=== PATIENT | female | born 1935 ===

== ENCOUNTER 2022-06-18 07:40 | Outpatient (REF) | payer MEDICARE, OTHER, SELFPAY ==
[2022-06-18 11:24] LABS: MANUAL DIFF FLAG NO
[2022-06-18 11:30] LABS: Basophils Absolute Auto 0.1 X10*3/uL (0.0-0.2); Basophils Percent Auto 1.4 % (0-2); Eosinophils Absolute Auto 0.4 X10*3/uL (0.0-0.4); Eosinophils Percent Auto 7.6 % (0-4); Hematocrit 42.6 % (37.0-47.0); Hemoglobin 13.6 g/dl (12.0-16.0); Imm Gran Abs Auto 0.02 X10*3/uL (0.00-0.03); Imm Gran Pct Auto 0.4 % (0.0-0.4); Lymphocytes Absolute Auto 0.9 X10*3/uL (1.2-4.9); Lymphocytes Percent Auto 16.3 % (20-40); Mean Corpuscular HGB Conc 31.9 g/dl (31.0-35.0); Mean Corpuscular Hemoglobin 31.2 pg (27.0-33.0); Mean Corpuscular Volume 97.7 fL (80.0-98.0); Mean Platelet Volume 11.6 fL (9.4-12.3); Monocytes Absolute Auto 0.7 X10*3/uL (0.1-1.2); Monocytes Percent Auto 11.7 % (2-11); Neutrophils Absolute Auto 3.5 x10*3/uL (2.0-8.3); Neutrophils Percent Auto 62.6 % (45-73); Platelet Count 253 X10*3/uL (160-400); Red Blood Count 4.36 X10*6/uL (4.20-5.50); Red Cell Distribution Width 12.4 % (11.0-16.0); White Blood Count 5.6 X10*3/uL (4.8-10.8)
[2022-06-18 11:51] LABS: Alanine Aminotransferase 12 U/L (0-31); Albumin Level 4.3 g/dL (3.5-5.0); Alkaline Phosphatase 80 U/L (39-117); Anion Gap 14 (12-20); Aspartate Amino Transferase 19 U/L (5-31); Bilirubin Total 0.5 mg/dL (0.0-1.0); Blood Urea Nitrogen 25 mg/dL (9-16); Calcium 9.5 mg/dL (8.4-10.2); Carbon Dioxide 29 mmol/L (22-29); Chloride 102 mmol/L (96-108); Cholesterol 272 mg/dL; Estimated Glomerular Filt Rate 44; Glucose Fasting 89 mg/dL (60-99); HDL Cholesterol 62 mg/dL; Iron 96 mcg/dL (30-160); LDL Cholesterol Calculated 179 mg/dl; Percent Iron Saturation 26 % (15-50); Potassium 4.3 mmol/L (3.3-5.1); Sodium 141 mmol/L (135-145); Total Iron Binding Capacity 371 mcg/dL (228-428); Total Protein 7.6 g/dL (6.5-8.0); Triglycerides 156 mg/dL; Unsaturated Iron Binding 275 ug/dL
[2022-06-18 12:11] LABS: TSH reflex Free T4 2.01 uIU/mL (0.32-4.0)
[2022-06-18 13:17] LABS: Folate > 20.0 ng/mL (> or = 4.0); Vitamin B12 782 pg/mL (200-900)
== END 2022-06-18 07:41 | disposition home or self-care (01) ==
LOC: HO.HMGCLDS 07:40
PROVIDERS: PCP Internal Medicine; Visit Provider Internal Medicine
DX: I10 Essential (primary) hypertension (principal); R42 Dizziness and giddiness
CPT/HCPCS: 36415; 80053; 80061; 82306; 82607; 82746; 83540; 84443; 85025

== ENCOUNTER 2022-07-20 10:55 | Outpatient (REF) | payer MEDICARE, OTHER, SELFPAY ==
--- NOTE | ~2022-07-20 | XR_ITS ---
EXAMINATION: XR CHEST CLINICAL INFORMATION: Dyspnea COMPARISON: None TECHNIQUE: 2 views of the chest were obtained. FINDINGS: The lungs are hyperinflated but clear. The heart size and pulmonary vascularity is normal. There is moderate dextroscoliosis dorsal spine. No lytic process seen. XR/XR chest 2V IMPRESSION: Hyperinflated lungs without acute process. There is moderate dextroscoliosis dorsal spine.
== END 2022-07-20 10:56 | disposition home or self-care (01) ==
LOC: HO.HMGCX 10:55
PROVIDERS: PCP Internal Medicine; Visit Provider Internal Medicine
DX: R06.09 Other forms of dyspnea (principal)
CPT/HCPCS: 71046

== ENCOUNTER → 2022-08-13 10:23 | Outpatient (REF) | payer MEDICARE, OTHER, SELFPAY ==
--- NOTE | 2022-08-13 10:22 | CA_ITS ---
Transthoracic Echocardiogram Patient (Last, First, Middle): Ambreen Storm Patricia (Pat) Gender: Female Date of : 1935 Age: 86 Procedure Date: 08/13/2022 Procedure Type: Transthoracic Echocardiogram Location: OP Height: 157.48 cm Weight: 48.54 kg BSA: 1.47 m2 Heart Rate: bpm BP: 165 / 80 mmHg Postal Carrier: TO Referring MD: Jennifer Moreno MD Symptoms: R06.09 - Other forms of dyspnea Study Quality: Adequate ECG Rhythm: Sinus Conclusions: - The left ventricular systolic function is normal. The calculated ejection fraction is 56% by biplane method. - The inferoseptal wall, the basal inferior, and basal inferolateral segments are hypokinetic. - The left atrium is moderately dilated. - There is mild mitral valve regurgitation. - There is mild tricuspid valve regurgitation. - Mild pulmonary hypertension is present. Findings Left Ventricle Normal left ventricular cavity size. There is normal left ventricular wall thickness. The left ventricular systolic function is normal. The calculated ejection fraction is 56% by biplane method. There is evidence of regional wall motion abnormalities. E/E prime ratio is between 8 and 15 consistent with indeterminate filling pressures. Evidence suggests grade I (mild) diastolic dysfunction. Wall Motion Rest Echo Findings The inferoseptal wall, the basal inferior, and basal inferolateral segments are hypokinetic. Right Ventricle Normal right ventricular cavity size and systolic function. Atria The left atrium is moderately dilated. The right atrium is normal in size. Aortic Valve There is a normal trileaflet aortic valve. There is no aortic valve stenosis. There is trace (trivial) aortic valve regurgitation. Mitral Valve The mitral valve appears normal. There is mild mitral valve regurgitation. There is no mitral valve stenosis. Pulmonic Valve There is mild pulmonic valve regurgitation. Tricuspid Valve Normal tricuspid valve structure. There is mild tricuspid valve regurgitation. Mild pulmonary hypertension is present. Great Vessels The asc aorta is normal in size. Venous The inferior vena cava is normal in size and collapses greater than 50% with inspiration. Pericardium/Pleural There is no evidence of pericardial effusion. Prior Study Comparison No prior study available for comparison. Measurements 2D Linear Measurements IVSd: 1.00 0.6-0.9/0.6-1.0 cm LVIDd: 4.44 3.9-5.3/4.2-5.9 cm LVIDd Index: 3.02 2.4-3.2/2.2-3.1 cm/m2 LVIDs: 2.75 2.0-3.6 cm LVPWd: 0.98 0.7-1.1 cm LA Diam: 3.10 2.7-3.8/3.0-4.0 cm LAIDs Index: 2.11 1.5-2.3 cm/m2 LV Mass: 183.52 67-162/88-224 g LV Mass Index: 124.84 43-95/49-115 g/m2 LVOT Diam: 2.00 3.0+(-)1.3 cm 2D Systolic Function EF 4C: 52.20 >55% EF 2C: 58.50 >55% EF BiP: 56.10 >55% Mitral Valve MV Pk E: 0.53 MV PK A: 0.72 MV Decel Time: 246.00 E/A: 0.70 E'Lateral: 7.07 E'Medial: 3.70 E/E' Med: 14.20 E/E' Lat: 7.50 PHT: 72.00 MVA PHT: 3.06 Decel Wake: 2.14 Aortic Valve AoV Pk Tejas: 0.89 AoV Mn Tejas: 0.66 AoV VTI: 0.23 AoV Pk Grad: 3.00 Aov Mn Grad: 2.00 KATEY Cont.VTI: 2.28 LVOT LVOT Pk Tejas: 0.65 LVOT Mn Tejas: 0.42 LVOT VTI: 0.17 LVOT Pk Grad: 2.00 LVOT Mn Grad: 1.00 LVOT Diam: 2.00 LVOT Area: 3.14 Diastolic Function MV Pk E: 0.53 MV Pk A: 0.72 E/A: 0.70 E'Medial: 3.70 E/E' Med: 14.20 E' Laterial: 7.07 E/E' Lat: 7.50 Right Ventricle TAPSE (mm): 20.00 TVS' Tejas: 9.25 Tricuspid Valve TR Pk Tejas: 3.00 TR Pk Grad: 36.00 RA Press: 3.00 RVSP: 39.00 Great Vessels Aorta Sinus of Valsalva: 3.69 2.0-3.5 cm Ao Asc: 3.30 2.1-3.4 cm Updated in Other Vendor System with Status of Final Scottie Madsen MD electronically signed on 08/14/2022 12:05:06 PM with status of Final
== END ==
LOC: HO.CARD 10:23
PROVIDERS: Visit Provider Internal Medicine
DX: R06.09 Other forms of dyspnea (principal); I10 Essential (primary) hypertension
CPT/HCPCS: 93306

== ENCOUNTER 2022-09-25 15:33 | Outpatient (REF) | payer MEDICARE, OTHER, SELFPAY ==
[2022-09-25 16:39] LABS: Influenza A PCR POSITIVE (Negative); Influenza B PCR NEGATIVE (Negative); Resp Syncy Virus RNA Qual PCR NEGATIVE (Negative); SARS COV2 PCR INHOUSE NEGATIVE (Negative)
== END 2022-09-25 15:34 | disposition home or self-care (01) ==
LOC: HO.LNP 15:33
DX: Z20.822 Contact with and (suspected) exposure to COVID-19 (principal); J06.9 Acute upper respiratory infection, unspecified
CPT/HCPCS: 0241U

== ENCOUNTER 2023-01-18 13:36 | Outpatient (REF) | payer MEDICARE, OTHER, SELFPAY ==
[2023-01-18 16:43] LABS: Alanine Aminotransferase 13 U/L (0-31); Alkaline Phosphatase 78 U/L (39-117); Anion Gap 15 (12-20); Aspartate Amino Transferase 19 U/L (5-31); Bilirubin Total 0.4 mg/dL (0.0-1.0); Blood Urea Nitrogen 24 mg/dL (9-16); Calcium 9.3 mg/dL (8.4-10.2); Carbon Dioxide 27 mmol/L (22-29); Chloride 102 mmol/L (96-108); Estimated Glomerular Filt Rate 39; Glucose Random 92 mg/dL (60-115); Potassium 4.5 mmol/L (3.3-5.1); Sodium 139 mmol/L (135-145); Total Protein 6.8 g/dL (6.5-8.0)
== END 2023-01-18 13:37 | disposition home or self-care (01) ==
LOC: HO.HMGCLDS 13:36
PROVIDERS: PCP Internal Medicine; Visit Provider Internal Medicine
DX: I12.9 Hypertensive chronic kidney disease with stage 1 through stage 4 chronic kidney disease, or unspecified chronic kidney disease (principal); N18.30 Chronic kidney disease, stage 3 unspecified
CPT/HCPCS: 36415; 80053

== ENCOUNTER 2023-02-23 14:19 | Outpatient (REF) | payer MEDICARE, OTHER, SELFPAY ==
--- NOTE | ~2023-02-23 | US_ITS ---
EXAMINATION: US RETROPERITONEAL LIMITED (RENAL ONLY) CLINICAL INFORMATION: Chronic kidney disease, stage 3 unspecified. COMPARISON: None available. TECHNIQUE: Real-time imaging of the kidneys. FINDINGS: RIGHT KIDNEY: 8.7 x 3.1 x 4.4 cm (SAG x AP x TRV). The right kidney is smaller than the left. There is right renal cortical thinning.. There is a 3 cm cyst in the upper pole. No renal calculi or hydronephrosis. LEFT KIDNEY: 10.2 x 3.4 x 3.9 cm (SAG x AP x TRV). The kidney is normal in size, contour, and echogenicity. There is be left renal cortical thinning.. There is a 9 x 8 x 8 mm minimally complex cyst in the upper pole the left kidney with single thin septation. No renal calculi or hydronephrosis. ADDITIONAL FINDINGS: There is a 2 cm cyst in the liver. US/US renal BI IMPRESSION: Bilateral renal cortical thinning. The right kidney is smaller than the left. Bilateral renal cysts.
== END 2023-02-23 14:20 | disposition home or self-care (01) ==
LOC: HO.HMGCX 14:19
PROVIDERS: PCP Internal Medicine; Visit Provider Internal Medicine
DX: N18.30 Chronic kidney disease, stage 3 unspecified (principal)
CPT/HCPCS: 76775

== ENCOUNTER 2023-03-30 10:27 | Outpatient (REF) | payer MEDICARE, OTHER, SELFPAY ==
[2023-03-30 12:39] LABS: Anion Gap 11 (12-20); Blood Urea Nitrogen 27 mg/dL (9-16); Calcium 9.8 mg/dL (8.4-10.2); Carbon Dioxide 29 mmol/L (22-29); Chloride 106 mmol/L (96-108); Estimated Glomerular Filt Rate 44; Glucose Random 75 mg/dL (60-115); Potassium 4.4 mmol/L (3.3-5.1); Sodium 142 mmol/L (135-145); Vitamin D 25-OH Total 61.3 ng/mL (>30)
== END 2023-03-30 10:28 | disposition home or self-care (01) ==
LOC: HO.HMGCLDS 10:27
PROVIDERS: PCP Internal Medicine; Visit Provider Internal Medicine
DX: I12.9 Hypertensive chronic kidney disease with stage 1 through stage 4 chronic kidney disease, or unspecified chronic kidney disease (principal); N18.30 Chronic kidney disease, stage 3 unspecified; E55.9 Vitamin D deficiency, unspecified
CPT/HCPCS: 36415; 80048; 82306

== ENCOUNTER 2023-09-27 09:58 | Outpatient (AMB) | payer MEDICARE, OTHER, SELFPAY ==
[2023-09-27 10:11] VITALS: BP 128/70; PULSE 70; O2SAT 94; BMI 20.6
--- NOTE | 2023-09-27 10:11 | MHC.PC.OV ---
Vital Signs 09/27/23 10:11 Height 5 ft 1 in Weight 109 lb BMI 20.6 BP 128/70 Blood Pressure Location Lt brachial Position Sitting Pulse 70 Pulse Source Pulse Oximeter Pulse Oximetry (%) 94 Oxygen Delivery Method Room Air Intake Visit Reasons: PE. Intake Note: Pt is here today for PE. Allergies brimonidine Adverse Reaction (Verified 09/27/23 10:28) Anaphylaxis codeine Adverse Reaction (Verified 09/27/23 10:28) Nausea and Vomiting Iodinated Contrast Media Adverse Reaction (Verified 09/27/23 10:28) Anaphylaxis NSAIDS (Non-Steroidal Anti-Inflamma Adverse Reaction (Verified 09/27/23 10:28) chronic kidney disease simvastatin Adverse Reaction (Verified 09/27/23 10:28) leg weakness fruit Adverse Reaction (Uncoded 09/27/23 10:28) Nausea and Vomiting niacin Adverse Reaction (Uncoded 09/27/23 10:28) leg cramps Tobacco use date assessed: 09/27/23 Fall risk assessment: No Falls in past year Last assessed Fall Risk: 09/27/23 Dental Screening Dental Screen Date: 09/27/23 Did you have a dental visit in the last 12 months?: Yes Did you have a dental problem in the last 6 months where you did not have access to dental care?: No Was dental information given to patient?: Patient has dentist [facility] Medical History Viral upper respiratory tract infection with cough Family History Father No problems noted. Mother No problems noted. Housing: Apartment Patient Tobacco Use Status: Never used Tobacco e-Cigarette/Vaping Use: Never Used service: No Current occupational status: retired Cognitive needs: No Hearing needs: Yes Vision needs: Yes Questionnaire Thrive Questionnaire Date Thrive assessed: 12/28/22 AUDIT C Alcohol Use Questionnaire (AUDIT-C) 1. How often do you have a drink containing alcohol?: Monthly or less 2. How many drinks containing alcohol do you have on a typical day when you are drinking?: 1 or 2 3. How often do you have six or more drinks on one occasion?: Never Total Score: 1 MATEO-7 AMB Questionnaire MATEO-7 Date MATEO - 7 assessed: 12/28/22 Source: Developed by Drs. Lane Meyers, Mere Kovacs, Zak Huitron and colleagues, with an educational arielle from [employer] Physical exam (Primary Care) Tobacco/Smoking Status: Tobacco use Status Tobacco use date assessed 12/28/22 03/30/23 10:04 Patient Tobacco Use Status Never used Tobacco 03/30/23 10:04 e-Cigarette/Vaping Use Never Used 03/30/23 10:04 Thrive Assessment: Date of Thrive Assessment Date Thrive assessed 12/28/22 03/30/23 10:04 Coding
--- NOTE | 2023-09-27 10:33 | A.OFFVIS_ITS ---
Intake Vital Signs 09/27/23 10:11 09/27/23 10:34 Height 5 ft 1 in Weight 109 lb BMI 20.6 20.6 BP 128/70 Blood Pressure Location Lt brachial Position Sitting Pulse 70 Pulse Source Pulse Oximeter Pulse Oximetry (%) 94 Oxygen Delivery Method Room Air Intake Visit Reasons: AWV. Allergies brimonidine Adverse Reaction (Verified 09/27/23 10:28) Anaphylaxis codeine Adverse Reaction (Verified 09/27/23 10:28) Nausea and Vomiting Iodinated Contrast Media Adverse Reaction (Verified 09/27/23 10:28) Anaphylaxis NSAIDS (Non-Steroidal Anti-Inflamma Adverse Reaction (Verified 09/27/23 10:28) chronic kidney disease simvastatin Adverse Reaction (Verified 09/27/23 10:28) leg weakness fruit Adverse Reaction (Uncoded 09/27/23 10:28) Nausea and Vomiting niacin Adverse Reaction (Uncoded 09/27/23 10:28) leg cramps Medication List - Last Reconciled 09/27/23 by Jennifer Moreno MD amiloride 5 mg PO DAILY amlodipine 2.5 mg PO DAILY ascorbic acid (vitamin C) 500 mg PO DAILY aspirin 81 mg PO DAILY latanoprost 0.005% 1 drp ophthalmic (eye) DAILY metoprolol succinate ER 50 mg PO DAILY multivit with min-folic acid 200 mcg (Adult Multivitamin Gummies) tabs PO timolol maleate 0.5% 1 drp ophthalmic (eye) BID triamcinolone acetonide 0.1% 1 appl topical DAILY HPI AWV. HPI Details Patient presents for annual. She complains of abdominal epigastric discomfort fullness slight nausea but no vomiting and increased abdominal girth for few months. Patient denies change in bowel habits or urination, fever or chills, night sweats or weight loss Initiated the conversation about Advanced Directives. Advanced Directives help? patients prepare for current and future decisions about their medical treatment? and place of care. Discussed with patient that it is a process where a patients? current condition and prognosis are reviewed, their wishes for information? regarding their illness are elicited, and likely medical dilemmas are presented? and options discussed. The form can be amended as needed, reviewed yearly and? make changes as needed IPPE/AWV ? year old presents? for her ? Annual? Wellness Visit, initial visit.? Medical / Social History Reviewed? Past Medical History ?Yes? . ? [place]? of Care / Care Team list updated ?Yes . ? Surgical/Hospitalization? History ?Yes . ? Current Medications? (including OTC and supplements) ?Yes . ? Family History ?Yes? . ? Tobacco? Control form ?Yes . ? AUDIT-C (Alcohol use) form? ?Yes . ? Illicit drug use in Social? History ?Yes . ? Current diagnosis of? depression? ?No ? Appropriate PHQ2/PHQ9? completed ?Yes . ? Data entered by ?Medical? [employer] and reviewed by provider ? Fall Risk ? Fall? History? Have you had any falls with? injury in the past year? ?No . ? Have you had two or more? falls in the past year? ?No . ? Fall Risk Assessment: ?No? falls in the past year . ? HRA filled out by? the patient, reviewed by Provider and scanned. ? IPPE/AWV ? Balance? [place]? ?Yes . ? Tandem? walk ?Yes . ? Walk and? Turn ?Yes . ? Rise from? sit to stand ?Yes . ?Vision? Corrective? lens ?Yes ? Vision? screen ? Up-to-date, has an appointment [] for vision? screening and glaucoma screening ?Hearing? Whisper? test ?pass .? Initiated the conversation about Advanced Directives. Advanced Directives help? patients prepare for current and future decisions about their medical treatment? and place of care. Discussed with patient that it is a process where a patients? current condition and prognosis are reviewed, their wishes for information? regarding their illness are elicited, and likely medical dilemmas are presented? and options discussed. The form can be amended as needed, reviewed yearly and? make changes as needed Written? Plan?Completed. See Patient? Documents. [facility] Medical History Viral upper respiratory tract infection with cough Family History Father No problems noted. Mother No problems noted. Housing: Apartment Patient Tobacco Use Status: Never used Tobacco e-Cigarette/Vaping Use: Never Used service: No Current occupational status: retired Cognitive needs: No Hearing needs: Yes Vision needs: Yes Questionnaire Medicare Wellness Checkup What is your age?: 80 or older What gender do you identify with?: female During the past 4 weeks, how much have you been bothered by emotional problems such as feeling anxious, depressed, irritable, sad or downhearted, and blue?: not at all During the past 4 weeks, has your physical & emotional health limited your social activities with family, friends, neighbors, or groups?: not at all During the past 4 weeks, how much bodily pain have you generally had?: very mild pain During the past 4 weeks, was someone available to help you if you needed & wanted help?: yes, as much as I wanted During the past 4 weeks, what was the hardest physical activity you could do for at least 2 minutes?: heavy Can you get to places out of walking distance without help? (For eg., can you travel alone on buses, taxis or drive your car?): Yes Can you go shopping for groceries or clothes without someone's help?: Yes Can you prepare your own meals?: Yes Can you do your housework without help?: Yes Because of any health problems, do you need the help of another person with your personal care needs such as eating, bathing, dressing or getting around the house?: No Can you handle your own money without help?: Yes During the past 4 weeks, how would you rate your health in general?: very good During the past 4 weeks how have things been going for you?: very well; could hardly better Are you having difficulties driving your car?: sometimes Do you always fasten your seat belt when you are in a car?: yes, usually During past 4 weeks, have you been bothered by the following: never: Sexual problems?, Teeth or denture problems? and Problems using the telephone? and sometimes: Falling or dizzy when standing up, Trouble eating well? and Tiredness or fatigue? Have you fallen 2 or more times in the past year?: No Are you afraid of falling?: Yes Are you a smoker?: no During the past 4 weeks, how many drinks of wine, beer, or other alcoholic beverages did you have?: 1 drink or less per week Do you exercise for about 20 minutes 3 or more times a week?: yes, most of the time Have you been given information to help with the following?: yes: Hazards in your house that might hurt you? and no: Keeping track of your medications? How often do you have trouble taking medicines the way you have been told to take them?: I always take medicine as prescribed How confident are you that you can control & manage most of your health problems?: very confident What is your race?: Other (N/A) Mini Mental State Exam (MMSE) Orientation What is the (year) (season) (date) (day) (month)?: year, season, date, day and month Where are we (state) (county) (town or city) (hospital) (floor)?: state, county, town or city, hospital/clinic and floor Registration Name of 3 unrelated objects clearly and slowly, then ask patient to repeat all 3 of them. (1st repeat determines score. Make sure they can repeat all three): object 1, object 2 and object 3 Attention & Calculation (CHOOSE ONE) Ask pt to begin with 100 & count backward by 7. Stop after 5 repeats. If pt c annot ask them to spell the word WORLD backward.: 93 Spell WORLD backwards (DLROW): 5 letters Recall Ask patient to repeat the 3 items from question #3.: object 1, object 2 and object 3 Language Show patient a wristwatch & ask what it is. Repeat for pencil.: watch and pencil Ask the patient to repeat the phrase 'No ifs, ands, or buts' after you.: correct Ask the patient to 'take a piece of paper with their right hand' 'fold paper in half' 'place paper on floor': take paper in right hand, fold paper in half and place paper on floor Print the sentence 'CLOSE YOUR EYES' on a piece. If patient actually closes eyes then score.: followed written direction Give patient a blank piece of paper & ask to write a sentence. Score if it contains a noun & verb.: sentence contains subject and verb Score Score: 30 PHQ-9 Over the last 2 weeks, how often have you been bothered by any of the following problems? 1. Little interest or pleasure in doing things: not at all 2. Feeling down, depressed, or hopeless: not at all 3. Trouble falling or staying asleep, or sleeping too much: not at all 4. Feeling tired or having little energy: not at all 5. Poor appetite or overeating: several days 6. Feeling bad about yourself - or that you are a failure or have let yourself or your family down: not at all 7. Trouble concentrating on things, such as reading the newspaper or watching television: not at all 8. Moving or speaking so slowly that other people could have noticed. Or the opposite - being so fidgety or restless that you have been moving around a lot more than usual: not at all 9. Thoughts that you would be better off or of hurting yourself in some way: not at all Total score: 1 Depression Screening Interpretation: Negative Depression Screening Done: Yes 71857 - PHQ-9 Billing: Yes Source: Developed by DrsCecille Meyers, Mere Kovacs, Zak Huitron and colleagues, with an educational arielle from [employer]. Review of Systems Const All systems reviewed & are unremarkable except as noted in HPI and below Reports no additional complaints Eyes Reports no additional complaints ENT Reports no additional complaints Card Reports no additional complaints Resp Reports no additional complaints GI Reports no additional complaints Reports no additional complaints Physical Exam Vital Signs: Last Vital Signs Pulse 70 09/27/23 10:11 BP 128/70 09/27/23 10:11 Pulse Ox 94 09/27/23 10:11 Oxygen Delivery Method Room Air 09/27/23 10:11 BMI result Body Mass Index 20.6 Const General: no acute distress HEENT Head: Yes normal to inspection Ears: hearing grossly normal bilaterally Neck Neck: Yes no lymphadenopathy and Yes supple Resp Effort & Inspection: normal respiratory effort Auscultation: diminished lung sounds Cardio Rhythm: regular rhythm Heart sounds: S1 normal heart sound present and S2 normal heart sound present GI Other: palpable firm, tender epigastric mass about 10 cm Inspection: Yes normal to inspection Palpation (GI): Soft to palpation and Tenderness to palpation present (GI) in the epigastrum; with no rebound tenderness Auscultation: normal bowel sounds Extrem General: Yes no clubbing, cyanosis or edema Assessment & Plan Assessment & Plan (1) Hyperlipidemia: Comment: INTOLERANT TO STATINS Code(s): E78.5 - Hyperlipidemia, unspecified (2) CKD (chronic kidney disease), stage III: Comment: Chronic, since 2019, Renal US small kidneys consistent with chronic kidney disease and bilateral renal cysts Code(s): N18.30 - Chronic kidney disease, stage 3 unspecified Plan: monitor renal function (3) OMER (dyspnea on exertion): Comment: Echo 08/22 LVEF 56%, mild hypokinesis in inferiolateral, basal inferior wall. Mild MR, mild pul HTN Code(s): R06.09 - Other forms of dyspnea (4) HTN (hypertension): Code(s): I10 - Essential (primary) hypertension Plan: cont current meds (5) Annual physical exam: Code(s): Z00.00 - Encounter for general adult medical examination without abnormal findings Plan: well balanced diet, regular exercise discussed (6) Abdominal mass: Comment: epigastric Code(s): R19.00 - Intra-abdominal and pelvic swelling, mass and lump, unspecified site Plan: obtain abd CT Orders: Orders Basic Metabolic Panel Today I10 - Essential (primary) hypertension, N18.30 - Chronic kidney disease, stage 3 unspecified Complete Blood Count Auto Diff 6 Months E78.5 - Hyperlipidemia, unspecified, I10 - Essential (primary) hypertension, N18.30 - Chronic kidney disease, stage 3 unspecified, Z00.00 - Encounter for general adult medical examination without abnormal findings CT abdomen w IV con 6 Months N18.30 - Chronic kidney disease, stage 3 unspecified, R19.06 - Epigastric swelling, mass or lump Comprehensive [place]. Panel Fast 6 Months E78.5 - Hyperlipidemia, unspecified, I10 - Essential (primary) hypertension, N18.30 - Chronic kidney disease, stage 3 unspecified, Z00.00 - Encounter for general adult medical examination without abnormal findings Lipid Panel 6 Months E78.5 - Hyperlipidemia, unspecified, I10 - Essential (primary) hypertension, N18.30 - Chronic kidney disease, stage 3 unspecified, Z00.00 - Encounter for general adult medical examination without abnormal findings Complete Blood Count Auto Diff Today R06.09 - Other forms of dyspnea Medications: Refilled amlodipine 2.5 mg PO DAILY 90 tabs 3RF metoprolol succinate ER 50 mg PO DAILY 90 tabs 3RF amiloride 5 mg PO DAILY 90 tabs 3RF Quality Reporting (2020) Depression/Bipolar (159/160/161/177) PHQ-9: Total score: 1 Coding Level of Care Code Medicare Subsequent (G0439) Diagnoses Hyperlipidemia E78.5 CKD (chronic kidney disease), stage III N18.30 OMER (dyspnea on exertion) R06.09 HTN (hypertension) I10 Annual physical exam Z00.00 Abdominal mass R19.00 CPT Codes Advance Care Planning - Advance Care Planning discussion: On file, no changes ([id number]) Advance Care Planning - Time spent: 1-15 minutes, on File ([id number]) Advance Care Planning Advance Care Planning discussion: On file, no changes Forms completed: Health Care Proxy Time spent: 1-15 minutes, on File
[2023-09-27 10:34] VITALS: BMI 20.6
== END 2023-09-27 11:11 | disposition home or self-care (01) ==
PROVIDERS: Visit Provider Internal Medicine
DX: E78.5 Hyperlipidemia, unspecified (principal); N18.30 Chronic kidney disease, stage 3 unspecified; R06.09 Other forms of dyspnea; I12.9 Hypertensive chronic kidney disease with stage 1 through stage 4 chronic kidney disease, or unspecified chronic kidney disease; Z00.00 Encounter for general adult medical examination without abnormal findings; R19.00 Intra-abdominal and pelvic swelling, mass and lump, unspecified site
CPT/HCPCS: 1123F; G0439

== ENCOUNTER 2023-09-27 11:07 | Outpatient (REF) | payer MEDICARE, OTHER, SELFPAY ==
[2023-09-27 13:28] LABS: MANUAL DIFF FLAG NO
[2023-09-27 13:36] LABS: Basophils Absolute Auto 0.1 X10*3/uL (0.0-0.2); Basophils Percent Auto 1.4 % (0-2); Eosinophils Absolute Auto 0.4 X10*3/uL (0.0-0.4); Eosinophils Percent Auto 7.3 % (0-4); Hematocrit 41.9 % (37.0-47.0); Hemoglobin 13.2 g/dl (12.0-16.0); Imm Gran Abs Auto 0.02 X10*3/uL (0.00-0.03); Imm Gran Pct Auto 0.3 % (0.0-0.4); Lymphocytes Absolute Auto 1.2 X10*3/uL (1.2-4.9); Lymphocytes Percent Auto 19.6 % (20-40); Mean Corpuscular HGB Conc 31.5 g/dl (31.0-35.0); Mean Corpuscular Hemoglobin 31.4 pg (27.0-33.0); Mean Corpuscular Volume 99.8 fL (80.0-98.0); Mean Platelet Volume 11.6 fL (9.4-12.3); Monocytes Absolute Auto 0.7 X10*3/uL (0.1-1.2); Monocytes Percent Auto 11.7 % (2-11); Neutrophils Absolute Auto 3.5 x10*3/uL (2.0-8.3); Neutrophils Percent Auto 59.7 % (45-73); Platelet Count 238 X10*3/uL (160-400); Red Cell Distribution Width 12.8 % (11.0-16.0); White Blood Count 5.9 X10*3/uL (4.8-10.8)
[2023-09-27 14:09] LABS: Anion Gap 12 (12-20); Blood Urea Nitrogen 22 mg/dL (9-16); Calcium 9.6 mg/dL (8.4-10.2); Carbon Dioxide 28 mmol/L (22-29); Chloride 105 mmol/L (96-108); Estimated Glomerular Filt Rate 43; Glucose Random 80 mg/dL (60-115); Potassium 4.1 mmol/L (3.3-5.1); Sodium 141 mmol/L (135-145)
== END 2023-09-27 11:08 | disposition home or self-care (01) ==
LOC: HO.HMGCLDS 11:07
PROVIDERS: PCP Internal Medicine; Visit Provider Internal Medicine
DX: I12.9 Hypertensive chronic kidney disease with stage 1 through stage 4 chronic kidney disease, or unspecified chronic kidney disease (principal); R06.09 Other forms of dyspnea; N18.30 Chronic kidney disease, stage 3 unspecified
CPT/HCPCS: 36415; 80048; 85025

== ENCOUNTER 2023-11-19 12:41 | Outpatient (REF) | payer MEDICARE, OTHER, SELFPAY ==
--- NOTE | ~2023-11-19 | CT_ITS ---
EXAMINATION: CT ABDOMEN WITHOUT CONTRAST CLINICAL INFORMATION: Intra-abdominal and pelvic swelling, mass and lump COMPARISON: Previous renal ultrasound January 2023 TECHNIQUE: Contiguous axial thin section helical images of the abdomen were performed without contrast. The data set was reformatted in the coronal and sagittal planes and reviewed on an independent workstation. This CT examination was performed using dose optimization techniques as appropriate, variously including the following: *Automated exposure control *Adjustment of mA and/or kV according to patient size (this includes techniques or standardized protocols for targeted exams where dose is matched to indication/reason for exam; i.e. extremities or head) *Use of iterative reconstruction technique DLP: 1 5 3 mGy-cm FINDINGS: LUNG BASES: The heart is slightly enlarged. Focal bronchiectasis at the right lung base in the right middle lobe. There is subsegmental atelectasis right middle lobe along the left pleural fissure. LIVER, GALLBLADDER, BILIARY TREE: Several low-attenuation liver lesions suggestive of cysts. Largest measures 1.8 cm in the lateral segment of the left lobe. The liver is normal in size, shape and attenuation. The gallbladder is normal and there is no biliary duct dilatation. PANCREAS: Normal SPLEEN: Normal ADRENAL GLANDS AND KIDNEYS: The adrenal glands are normal. There is a 3.7 cm cyst in the right kidney. Kidneys are otherwise normal. BOWEL LOOPS: There is diverticulosis of the colon. Visualized bowel is otherwise unremarkable. No ascites. Supraumbilical and umbilical hernias containing fat. LYMPH NODES: No enlarged nodes VASCULAR: Severe atherosclerotic disease. No aneurysm. BONES: Curvature of the lumbar spine to the left and degenerative changes. CT/CT abdomen wo IV con IMPRESSION: Umbilical and supraumbilical hernias containing fat. Diverticulosis. Liver cysts. Fleischner guidelines were followed.
[2023-11-19] MEDS: Barium Sulfate Oral (Vanilla) 450 ML ORAL.SUSP PO (14:39)
== END 2023-11-19 12:42 | disposition home or self-care (01) ==
LOC: HO.CT 12:41
PROVIDERS: PCP Internal Medicine; Visit Provider Internal Medicine
DX: R19.00 Intra-abdominal and pelvic swelling, mass and lump, unspecified site (principal)
CPT/HCPCS: 74150

== ENCOUNTER 2023-11-22 09:19 | Outpatient (AMB) | payer MEDICARE, OTHER, SELFPAY ==
[2023-11-22 09:34] VITALS: BP 130/64; PULSE 78; TEMP 36.6; O2SAT 97; BMI 20.6
--- NOTE | 2023-11-22 09:34 | AM.OFFWIN_ITS ---
Intake Vital Signs 11/22/23 09:34 Height 5 ft 1 in Weight 109 lb BMI 20.6 BP 130/64 Blood Pressure Location Rt brachial Position Sitting Pulse 78 Pulse Source Pulse Oximeter Temp 98 F Temp Source Oral Pulse Oximetry (%) 97 Oxygen Delivery Method Room Air Intake Visit Reasons: EP Cough (masked) with her Intake Note: Pt is here today for sore throat and light headed. Pt states it started a wk ago. Patient Tobacco Use Status: Never used Tobacco Allergies brimonidine Adverse Reaction (Verified 11/22/23 10:30) Anaphylaxis codeine Adverse Reaction (Verified 11/22/23 10:30) Nausea and Vomiting Iodinated Contrast Media Adverse Reaction (Verified 11/22/23 10:30) Anaphylaxis NSAIDS (Non-Steroidal Anti-Inflamma Adverse Reaction (Verified 11/22/23 10:30) chronic kidney disease simvastatin Adverse Reaction (Verified 11/22/23 10:30) leg weakness fruit Adverse Reaction (Uncoded 11/22/23 10:30) Nausea and Vomiting niacin Adverse Reaction (Uncoded 11/22/23 10:30) leg cramps Medication List - Last Reconciled 11/22/23 by Taj Macdonald MD amiloride 5 mg PO DAILY amlodipine 2.5 mg PO DAILY ascorbic acid (vitamin C) 500 mg PO DAILY aspirin 81 mg PO DAILY latanoprost 0.005% 1 drp ophthalmic (eye) DAILY metoprolol succinate ER 50 mg PO DAILY multivit with min-folic acid 200 mcg (Adult Multivitamin Gummies) tabs PO timolol maleate 0.5% 1 drp ophthalmic (eye) BID triamcinolone acetonide 0.1% 1 appl topical DAILY Do you need a note to return to daycare/school/sports/work: No HPI EP Cough (masked) with her HPI Details 87-year-old female presents to the [facility] for a sick visit[facility] She [facility] in a senior [facility]. For the past 2 weeks she has been complaining of symptoms of sinus congestion, postnasal drip. Has not had a COVID test. Able to function and do all activities of daily living. [facility] Medical History Viral upper respiratory tract infection with cough Family History Father No problems noted. Mother No problems noted. Social History Housing: Apartment Patient Tobacco Use Status: Never used Tobacco e-Cigarette/Vaping Use: Never Used service: No Current occupational status: retired Cognitive needs: No Hearing needs: Yes Vision needs: Yes Physical Exam Vital Signs: Last Vital Signs Temp 98 F 11/22/23 09:34 Pulse 78 11/22/23 09:34 BP 130/64 11/22/23 09:34 Pulse Ox 97 11/22/23 09:34 Oxygen Delivery Method Room Air 11/22/23 09:34 BMI result Body Mass Index 20.6 Const General: cooperative and healthy appearing Nutritional Appearance: well nourished Orientation/consciousness: patient oriented x3 Limitations: no limitations HEENT Head: Yes normal to inspection Eyes General: appearance normal, both eyes and all related structures Neck Neck: Yes normal visual inspection Chest Chest palpation & inspection: normal palpation of entire chest wall Resp Effort & Inspection: normal respiratory effort Neuro General: patient oriented x3 Results AMB Rapid Strep AMB Rapid Strep Negative Last Edit by Alli Martinez CMA on 11/22/23 10 :02 Results Reviewed Results Reviewed: Laboratory Last Values Strep Scn Rapid Clinic Negative 11/22/23 10:01 Assessment & Plan Assessment & Plan (1) Upper respiratory tract infection: Code(s): J06.9 - Acute upper respiratory infection, unspecified Plan: Chest x-ray images were personally reviewed by me. No infiltrate seen. Z-Gumaro and prednisone called in. Will call with results. Orders: Orders AMB Rapid Strep Screen Today Z13.9 - Encounter for screening, unspecified XR chest 2V Today R05.9 - Cough, unspecified SARS-CoV2/FLU/RSV Today R43.9 - Unspecified disturbances of smell and taste Medications: New prednisone 60 mg (3 x 20 mg) PO DAILY 9 tabs 0RF azithromycin take 500 mg today (day 1), then 250 mg for 4 days (days 2-5) PO 6 tabs 0RF Coding Level of Care Code Est Pt Level 4 (60952) Diagnoses Upper respiratory tract infection J06.9
== END 2023-11-22 10:58 | disposition home or self-care (01) ==
PROVIDERS: PCP Internal Medicine; Visit Provider Internal Medicine
DX: J06.9 Acute upper respiratory infection, unspecified (principal); J02.9 Acute pharyngitis, unspecified
CPT/HCPCS: 87880; 99214

== ENCOUNTER 2023-11-22 10:22 | Outpatient (REF) | payer MEDICARE, OTHER, SELFPAY ==
--- NOTE | ~2023-11-22 | XR_ITS ---
EXAMINATION: XR CHEST CLINICAL INFORMATION: Cough COMPARISON: Chest radiograph from 07/20/2022 TECHNIQUE: 2 views of the chest were obtained. FINDINGS: Chronic interstitial lung markings. Biapical pleural parenchymal scarring. No pneumothorax. Trachea is midline. Cardiomediastinal silhouette is not enlarged. Aorta demonstrates tortuosity with atherosclerotic calcifications. No large pleural effusion. Osteopenia. Dextrocurvature of the mid thoracic spine with multilevel degenerative changes. Soft tissues are unremarkable. XR/XR chest 2V IMPRESSION: 1. Chronic interstitial lung markings. 2. Biapical pleural parenchymal scarring.
[2023-11-22 15:23] LABS: Influenza A PCR NEGATIVE (Negative); Influenza B PCR NEGATIVE (Negative); Resp Syncy Virus RNA Qual PCR POSITIVE (Negative); SARS COV2 PCR INHOUSE NEGATIVE (Negative)
== END 2023-11-22 10:23 | disposition home or self-care (01) ==
LOC: HO.HMGCX 10:22
PROVIDERS: PCP Internal Medicine; Visit Provider Internal Medicine
DX: R05.9 Cough, unspecified (principal); R43.9 Unspecified disturbances of smell and taste; Z11.52 Encounter for screening for COVID-19; Z20.828 Contact with and (suspected) exposure to other viral communicable diseases
CPT/HCPCS: 0241U; 71046

== ENCOUNTER 2023-11-27 09:15 | Outpatient (AMB) | payer MEDICARE, OTHER, SELFPAY ==
--- NOTE | 2023-11-27 09:47 | AM.OFFWIN_ITS ---
Intake Vital Signs 11/27/23 09:50 Height 5 ft 1 in Weight 107 lb 2 oz BMI 20.2 BP 128/74 Blood Pressure Location Lt brachial Position Sitting Pulse 77 Pulse Source Pulse Oximeter Temp 97.8 F Temp Source Oral Pulse Oximetry (%) 95 Oxygen Delivery Method Room Air Oxygen Flow Rate 97.8 Intake Visit Reasons: EP Wheezing/ Diff Breathing/light headed Intake Note: Patient is here with wheezing,she can't catch her breath, and she feels lightheaded after she coughs, to the point where she feels like she's going to pass out. Patient Tobacco Use Status: Never used Tobacco Allergies brimonidine Adverse Reaction (Verified 11/27/23 10:06) Anaphylaxis codeine Adverse Reaction (Verified 11/27/23 10:06) Nausea and Vomiting Iodinated Contrast Media Adverse Reaction (Verified 11/27/23 10:06) Anaphylaxis NSAIDS (Non-Steroidal Anti-Inflamma Adverse Reaction (Verified 11/27/23 10:06) chronic kidney disease simvastatin Adverse Reaction (Verified 11/27/23 10:06) leg weakness fruit Adverse Reaction (Uncoded 11/27/23 10:06) Nausea and Vomiting niacin Adverse Reaction (Uncoded 11/27/23 10:06) leg cramps Medication List - Last Reconciled 11/27/23 by Kirti Puentes CNP amiloride 5 mg PO DAILY amlodipine 2.5 mg PO DAILY ascorbic acid (vitamin C) 500 mg PO DAILY aspirin 81 mg PO DAILY azithromycin take 500 mg today (day 1), then 250 mg for 4 days (days 2-5) PO latanoprost 0.005% 1 drp ophthalmic (eye) DAILY metoprolol succinate ER 50 mg PO DAILY multivit with min-folic acid 200 mcg (Adult Multivitamin Gummies) tabs PO prednisone 60 mg (3 x 20 mg) PO DAILY timolol maleate 0.5% 1 drp ophthalmic (eye) BID triamcinolone acetonide 0.1% 1 appl topical DAILY Do you need a note to return to daycare/school/sports/work: No HPI HPI Comments History of Present Illness Details 87-year-old female presents to [facility] for complaint of cough, wheezing, and shortness of breath. She reports symptoms initially started 2 weeks ago with sinus congestion, post nasal drip and sore throat. She was seen in [facility] in clinic on 11/22/23 for similar complaints and Nasal PCR swab came back + for RSV, She was started on Z-pack and prednisone taper, completed the 5 day dose on , she does endorse the cough and sore throat seem some what better as of yesterday, but she is concerned when she does cough she experiences wheezing, difficulty catching her breath and lightheadedness. She does report a history of vertigo and denies symptoms being different or worse than usual. She lives in a [facility] and is concerned how long RSV is contagious and how long symptoms last. She is able to function and do all activities of daily living. She denies fever, chills, CP, headache, changes in vision, syncope, abdominal pain, nausea, vomiting or changes in bowels or bladder. [facility] Medical History Viral upper respiratory tract infection with cough Family History Father No problems noted. Mother No problems noted. Social History Housing: Apartment Patient Tobacco Use Status: Never used Tobacco e-Cigarette/Vaping Use: Never Used service: No Current occupational status: retired Cognitive needs: No Hearing needs: Yes Vision needs: Yes Review of Systems Const All systems reviewed & are unremarkable except as noted in HPI and below Physical Exam Vital Signs: Last Vital Signs Temp 97.8 F 11/27/23 09:50 Pulse 77 11/27/23 09:50 BP 128/74 11/27/23 09:50 Pulse Ox 95 11/27/23 09:50 Oxygen Delivery Method Room Air 11/27/23 09:50 Oxygen Flow Rate 97.8 11/27/23 09:50 BMI result Body Mass Index 20.2 Const General: healthy appearing and no acute distress Nutritional Appearance: well nourished Orientation/consciousness: patient oriented x3 Limitations: no limitations HEENT Head: Yes normal to inspection, Yes normocephalic and Yes atraumatic Ears: hearing grossly normal bilaterally and TM's normal bilaterally General nose exam: Normal nasal mucous membranes and turbinates present Face and sinus: Yes sinuses nontender Mouth: moist mucous membranes Throat: Yes posterior oropharynx normal Eyes General: appearance normal, both eyes and all related structures Neck Neck: Yes normal visual inspection, Yes no lymphadenopathy and Yes supple Chest Chest palpation & inspection: normal inspection of the chest Resp Effort & Inspection: normal respiratory effort, Actively coughing Quality: wet (congested cough), no respiratory distress and not tachypneic Auscultation: no crackles, no rales, rhonchi upper bilaterally and no wheezes Cardio Rate: regular rate Rhythm: regular rhythm Heart sounds: S1 normal heart sound present and S2 normal heart sound present Peripheral pulses: Peripheral pulses 2+ throughout GI Inspection: Yes normal to inspection Palpation (GI): Soft to palpation and nontender Auscultation: normal bowel sounds Skin General skin exam: no rashes or lesions noted and turgor normal Neuro General: patient oriented x3, gait normal, moves all extremities and no focal motor deficits Extrem General: Yes normal to inspection, Yes capillary refill normal and Yes no clubbing, cyanosis or edema Psych Appearance: well kempt Mental Status: mental status grossly normal Affect: normal affect Attitude: cooperative Results Reviewed Results Reviewed: [facility] [address] [place] [address] [place] [id number] XRay Report Signed Patient: Ambreen Storm MR#: [id number] : 1935 Acct:[id number] Age/Sex: 87 / F ADM Date: 11/27/23 Loc: HO.[facility]GCX Attending Dr: Kirti Puentes CNP Ordering Physician: Kirti Puentes CNP Date of Service: 11/27/23 Procedure(s): XR chest 1V Accession Number(s): [id number] cc: Kirti Puentes CNP~ EXAMINATION: XR CHEST CLINICAL INFORMATION: Recent RSV, difficulty breathing and cough. COMPARISON: Chest radiograph 11/24/2023 and 07/20/2022. TECHNIQUE: Frontal view of the chest was obtained. FINDINGS: Stable appearance of the cardiomediastinal silhouette. Redemonstration of increased lung volumes with chronic interstitial thickening, not significantly changed compared to 07/20/2022. Again noted postsurgical changes in the left lung with very subtle sutures. No new focal airspace densities. No pleural effusion or pneumothorax. Unchanged mild biapical subpleural thickening. Thoracolumbar scoliosis. No acute osseous findings. Visualized upper abdomen is within normal limits. XR/XR chest 1V IMPRESSION: Stable examination. Chronic interstitial thickening and hyperexpansion. Transthoracic Echo 08/13/22 Conclusions: - The left ventricular systolic function is normal. The calculated ejection fraction is 56% by biplane method. - The inferoseptal wall, the basal inferior, and basal inferolateral segments are hypokinetic. - The left atrium is moderately dilated. - There is mild mitral valve regurgitation. - There is mild tricuspid valve regurgitation. - Mild pulmonary hypertension is present. Assessment & Plan Assessment & Plan (1) RSV bronchiolitis: Code(s): J21.0 - Acute bronchiolitis due to respiratory syncytial virus Plan: 87 yo female w/ recent + PCR for RSV seen today for ongoing symptoms x 6 days of cough, congestion, SOB with cough, and dizziness. Hx of reported vertigo with no worsening symptoms. Afebrile, vital signs stable, repeat CXR with no change compared to 11/22/23, Chronic interstitial thickening and hyperexpansion indicative of COPD, fibrosis of aveoli, emphysema. Review of Echo 08/13/22 reveals mild mitral valve regurgitation, EF 56%. -- Education provided on RSV symptoms, length of symptoms, and length of spreading usually no more than 8 days -- Patient declines Rx for Ventolin UD, she also declines extension of abx or prednisone. -- Will treat with supportive care, continue over the counter cough medicine, will add Guaifenesin to help loosen congestion. -- Encouraged to drink plenty of fluids, maintain hydration, and get plenty of rest. -- Encouraged to follow up with PCP for re-evaluation -- Will return to office or ER for worsening SOB, CP, lightheadedness, dizziness or fever. (2) Vertigo: Code(s): R42 - Dizziness and giddiness Plan: Hx of vertigo with no reported increase in symptoms. -- Will f/u with PCP -- Return to office or ER with worsening symptoms. (3) COPD (chronic obstructive pulmonary disease): Code(s): J44.9 - Chronic obstructive pulmonary disease, unspecified Plan: CXR reveals emphysema, COPD -- Will f/u with PCP for possible referral to Pulmonology for management. Orders: Orders XR chest 1V 11/27/23 J21.0 - Acute bronchiolitis due to respiratory syncytial virus, R06.02 - Shortness of breath Medications: New guaifenesin ER (Mucinex) 600 mg PO BID 14 tabs 0RF J21.0 - Acute bronchiolitis due to respiratory syncytial virus Coding Level of Care Code Est Pt Level 4 (43656) Diagnoses RSV bronchiolitis J21.0 Vertigo R42 COPD (chronic obstructive pulmonary disease) J44.9
[2023-11-27 09:50] VITALS: BP 128/74; PULSE 77; TEMP 36.6; O2SAT 95; BMI 20.2
== END 2023-11-27 10:41 | disposition home or self-care (01) ==
PROVIDERS: PCP Internal Medicine; Visit Provider Nurse Practitioner Acute Care
DX: J21.0 Acute bronchiolitis due to respiratory syncytial virus (principal); R42 Dizziness and giddiness; J44.9 Chronic obstructive pulmonary disease, unspecified
CPT/HCPCS: 99214

== ENCOUNTER 2023-11-27 10:25 | Outpatient (REF) | payer MEDICARE, OTHER, SELFPAY ==
--- NOTE | ~2023-11-27 | XR_ITS ---
EXAMINATION: XR CHEST CLINICAL INFORMATION: Recent RSV, difficulty breathing and cough. COMPARISON: Chest radiograph 11/24/2023 and 07/20/2022. TECHNIQUE: Frontal view of the chest was obtained. FINDINGS: Stable appearance of the cardiomediastinal silhouette. Redemonstration of increased lung volumes with chronic interstitial thickening, not significantly changed compared to 07/20/2022. Again noted postsurgical changes in the left lung with very subtle sutures. No new focal airspace densities. No pleural effusion or pneumothorax. Unchanged mild biapical subpleural thickening. Thoracolumbar scoliosis. No acute osseous findings. Visualized upper abdomen is within normal limits. XR/XR chest 1V IMPRESSION: Stable examination. Chronic interstitial thickening and hyperexpansion.
== END 2023-11-27 10:26 | disposition home or self-care (01) ==
LOC: HO.HMGCX 10:25
PROVIDERS: Visit Provider Nurse Practitioner Acute Care
DX: J21.0 Acute bronchiolitis due to respiratory syncytial virus (principal); R06.02 Shortness of breath
CPT/HCPCS: 71045

== ENCOUNTER 2024-03-28 12:10 | Outpatient (AMB) | payer MEDICARE, OTHER, SELFPAY ==
[2024-03-28 12:12] VITALS: BP 106/76; PULSE 69; O2SAT 95
--- NOTE | 2024-03-28 12:12 | MHC.PC.OV ---
Vital Signs 03/28/24 12:12 Height 5 ft 0.7 in Weight 105 lb BMI 20.0 BP 106/76 Blood Pressure Location Rt brachial Position Sitting Pulse 69 Pulse Source Pulse Oximeter Pulse Oximetry (%) 95 Oxygen Delivery Method Room Air Intake Visit Reasons: 6 Month follow up HTN Intake Note: Pt is here today for 6 months follow up visit. Allergies brimonidine Adverse Reaction (Verified 03/28/24 12:13) Anaphylaxis codeine Adverse Reaction (Verified 03/28/24 12:13) Nausea and Vomiting Iodinated Contrast Media Adverse Reaction (Verified 03/28/24 12:13) Anaphylaxis NSAIDS (Non-Steroidal Anti-Inflamma Adverse Reaction (Verified 03/28/24 12:13) chronic kidney disease simvastatin Adverse Reaction (Verified 03/28/24 12:13) leg weakness fruit Adverse Reaction (Uncoded 03/28/24 12:13) Nausea and Vomiting niacin Adverse Reaction (Uncoded 03/28/24 12:13) leg cramps Medication List - Last Reconciled 03/28/24 by Jennifer Moreno MD amiloride 5 mg PO DAILY amlodipine 2.5 mg PO DAILY ascorbic acid (vitamin C) 500 mg PO DAILY aspirin 81 mg PO DAILY azithromycin take 500 mg today (day 1), then 250 mg for 4 days (days 2-5) PO guaifenesin ER (Mucinex) 600 mg PO BID latanoprost 0.005% 1 drp ophthalmic (eye) DAILY metoprolol succinate ER 50 mg PO DAILY multivit with min-folic acid 200 mcg (Adult Multivitamin Gummies) tabs PO prednisone 60 mg (3 x 20 mg) PO DAILY timolol maleate 0.5% 1 drp ophthalmic (eye) BID triamcinolone acetonide 0.1% 1 appl topical DAILY Tobacco use date assessed: 03/28/24 Fall risk assessment: No Falls in past year Last assessed Fall Risk: 03/28/24 Dental Screening Dental Screen Date: 03/28/24 Did you have a dental visit in the last 12 months?: Yes Did you have a dental problem in the last 6 months where you did not have access to dental care?: No Was dental information given to patient?: Patient has dentist HPI 6 Month follow up HTN HPI Details Pt presents for f/u HTN. Pt complains of chronic (for many years) sensation of being off balance going toward right side when walking on sidewalk. 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 Patient denies weakness or numbness in extremities, nausea vomiting diplopia, lightheadedness, palpitation chest pains. [facility] Medical History Viral upper respiratory tract infection with cough Family History Father No problems noted. Mother No problems noted. Social History Housing: Apartment Patient Tobacco Use Status: Never used Tobacco e-Cigarette/Vaping Use: Never Used service: No Current occupational status: retired Cognitive needs: No Hearing needs: Yes Vision needs: Yes Questionnaire PHQ-9 Over the last 2 weeks, how often have you been bothered by any of the following problems? 1. Little interest or pleasure in doing things: not at all 2. Feeling down, depressed, or hopeless: not at all 3. Trouble falling or staying asleep, or sleeping too much: not at all 4. Feeling tired or having little energy: not at all 5. Poor appetite or overeating: several days 6. Feeling bad about yourself - or that you are a failure or have let yourself or your family down: not at all 7. Trouble concentrating on things, such as reading the newspaper or watching television: not at all 8. Moving or speaking so slowly that other people could have noticed. Or the opposite - being so fidgety or restless that you have been moving around a lot more than usual: not at all 9. Thoughts that you would be better off or of hurting yourself in some way: not at all Total score: 1 Depression Screening Interpretation: Negative Depression Screening Done: Yes Source: Developed by Drs. Lane Meyers, Mere Kovacs, Zak Huitron and colleagues, with an educational arielle from [employer]. Thrive Questionnaire Date Thrive assessed: 03/28/24 I am a: Patient What is your living situation today?: I have a steady place to live Within the past 12 months, did the food you bought not last and you didn't have the money to get more?: Never true Within the past 12 months, did you worry whether your food would run out before you got money to buy more?: Never true Do you have trouble paying for medicines?: No Do you have trouble getting transportation to medical appointments?: No Do you have trouble paying your heating and electricity bill?: No Do you have trouble taking care of your child, family member or friend?: No Do you have trouble with day-to-day activities such as bathing, preparing meals, shopping, managing finances, etc.?: No Are you currently unemployed and looking for a job?: No Are you interested in more education?: No Please select the resources that you would like help with: None THRIVE Score: 0 AUDIT C Alcohol Use Questionnaire (AUDIT-C) 1. How often do you have a drink containing alcohol?: Monthly or less 2. How many drinks containing alcohol do you have on a typical day when you are drinking?: 1 or 2 3. How often do you have six or more drinks on one occasion?: Never Total Score: 1 MATEO-7 AMB Questionnaire MATEO-7 Date MATEO - 7 assessed: 03/28/24 Feeling nervous, anxious, or on edge: 0 = Not at all Not being able to stop or control worryin = Not at all Worrying too much about different things: 0 = Not at all Trouble relaxin = Not at all Being so restless that it is hard to sit still: 0 = Not at all Becoming easily annoyed or irritable: 1 = Several days Feeling afraid as if something awful might happen: 0 = Not at all Total MATEO-7 score (0-4 normal; 5-9 mild; 10-14 moderate; 15-21 severe): 1 Source: Developed by Drs. Lane Meyers, Mere Kovacs, Zak Huitron and colleagues, with an educational arielle from [employer]. Review of Systems Const All systems reviewed & are unremarkable except as noted in HPI and below Reports no additional complaints Eyes Reports no additional complaints ENT Reports no additional complaints Card Reports no additional complaints Resp Reports no additional complaints Reports no additional complaints Musc Reports no additional complaints Physical exam (Primary Care) Vital Signs: Last Vital Signs Pulse 69 03/28/24 12:12 BP 106/76 03/28/24 12:12 Pulse Ox 95 03/28/24 12:12 Oxygen Delivery Method Room Air 03/28/24 12:12 BMI result Body Mass Index 20.0 Tobacco/Smoking Status: Tobacco use Status Tobacco use date assessed 03/28/24 03/28/24 12:20 Patient Tobacco Use Status Never used Tobacco 03/28/24 12:20 e-Cigarette/Vaping Use Never Used 03/28/24 12:20 PHQ-9: PHQ-9 Score PHQ-9: Total score 1 03/28/24 12:25 Depression Screening Interpretation: Negative Thrive Assessment: Date of Thrive Assessment Date Thrive assessed 03/28/24 03/28/24 12:25 Const General: no acute distress HENMT Head: Yes normal to inspection Ears: hearing grossly normal bilaterally Face and sinus: Yes normal facial exam Mouth: Normal oral and palatal mucosa present Eyes General: appearance normal, both eyes and all related structures Neck Neck: Yes no lymphadenopathy and Yes supple Cardio Rhythm: regular rhythm Heart sounds: S1 normal heart sound present and S2 normal heart sound present GI Inspection: Yes normal to inspection Palpation (GI): Soft to palpation Percussion: Yes normal to percussion Auscultation: normal bowel sounds Neuro Cranial nerves: Yes CN's II-XII intact bilaterally Gait exam (Neuro): Normal gait present Motor exam (neuro): 5/5 motor strength present throughout and Pronator motor function not present Romberg Test: Negative Assessment and Plan Assessment & Plan (1) CKD (chronic kidney disease), stage III: Comment: Chronic, since 2019, Renal US small kidneys consistent with chronic kidney disease and bilateral renal cysts Code(s): N18.30 - Chronic kidney disease, stage 3 unspecified Plan: Monitor renal function avoid NSAIDs check comprehensive panel today and in 6 months (2) HTN (hypertension): Code(s): I10 - Essential (primary) hypertension Plan: Continue current medications (3) Hyperlipidemia: Comment: INTOLERANT TO STATINS Code(s): E78.5 - Hyperlipidemia, unspecified Plan: Continue low-cholesterol diet (4) Annual physical exam: Code(s): Z00.00 - Encounter for general adult medical examination without abnormal findings Orders: Orders Comprehensive [place]. Panel Fast 6 Months E78.5 - Hyperlipidemia, unspecified, I10 - Essential (primary) hypertension, N18.30 - Chronic kidney disease, stage 3 unspecified, Z00.00 - Encounter for general adult medical examination without abnormal findings Lipid Panel 6 Months E78.5 - Hyperlipidemia, unspecified, I10 - Essential (primary) hypertension, N18.30 - Chronic kidney disease, stage 3 unspecified, Z00.00 - Encounter for general adult medical examination without abnormal findings Vitamin D 25-OH Total 6 Months E78.5 - Hyperlipidemia, unspecified, I10 - Essential (primary) hypertension, N18.30 - Chronic kidney disease, stage 3 unspecified, Z00.00 - Encounter for general adult medical examination without abnormal findings Complete Blood Count no Diff Today I10 - Essential (primary) hypertension, N18.30 - Chronic kidney disease, stage 3 unspecified Comprehensive Met. Panel Today I10 - Essential (primary) hypertension, N18.30 - Chronic kidney disease, stage 3 unspecified Complete Blood Count Auto Diff 6 Months E78.5 - Hyperlipidemia, unspecified, I10 - Essential (primary) hypertension, N18.30 - Chronic kidney disease, stage 3 unspecified, Z00.00 - Encounter for general adult medical examination without abnormal findings Referrals Dermatology Referral D23.30 - Other benign neoplasm of skin of unspecified part of face, D23.9 - Other benign neoplasm of skin, unspecified Medications: Discontinued prednisone Discontinued Reason: Doctor's Order 60 mg (3 x 20 mg) PO DAILY 9 tabs 0RF azithromycin Discontinued Reason: Doctor's Order take 500 mg today (day 1), then 250 mg for 4 days (days 2-5) PO 6 tabs 0RF Coding Level of Care Code Est Pt Level 4 (74819) Diagnoses CKD (chronic kidney disease), stage III N18.30 HTN (hypertension) I10 Hyperlipidemia E78.5 Annual physical exam Z00.00
== END 2024-03-28 13:10 | disposition home or self-care (01) ==
PROVIDERS: PCP Internal Medicine; Visit Provider Internal Medicine
DX: I12.9 Hypertensive chronic kidney disease with stage 1 through stage 4 chronic kidney disease, or unspecified chronic kidney disease (principal); N18.30 Chronic kidney disease, stage 3 unspecified; E78.5 Hyperlipidemia, unspecified
CPT/HCPCS: 99214

== ENCOUNTER 2024-03-28 13:12 | Outpatient (REF) | payer MEDICARE, OTHER, SELFPAY ==
[2024-03-28 16:06] LABS: Hematocrit 41.7 % (37.0-47.0); Hemoglobin 13.5 g/dl (12.0-16.0); Mean Corpuscular HGB Conc 32.4 g/dl (31.0-35.0); Mean Corpuscular Hemoglobin 32.1 pg (27.0-33.0); Mean Corpuscular Volume 99.3 fL (80.0-98.0); Mean Platelet Volume 11.7 fL (9.4-12.3); Platelet Count 240 X10*3/uL (160-400); Red Cell Distribution Width 12.6 % (11.0-16.0); White Blood Count 6.3 X10*3/uL (4.8-10.8)
[2024-03-28 16:24] LABS: Alanine Aminotransferase 14 U/L (0-31); Albumin Level 4.4 g/dL (3.5-5.0); Alkaline Phosphatase 75 U/L (39-117); Anion Gap 12 (12-20); Aspartate Amino Transferase 23 U/L (5-31); Bilirubin Total 0.3 mg/dL (0.0-1.0); Blood Urea Nitrogen 26 mg/dL (9-16); Calcium 9.6 mg/dL (8.4-10.2); Carbon Dioxide 28 mmol/L (22-29); Chloride 105 mmol/L (96-108); Estimated Glomerular Filt Rate 45; Glucose Random 87 mg/dL (60-115); Sodium 141 mmol/L (135-145); Total Protein 7.7 g/dL (6.5-8.0)
== END 2024-03-28 13:13 | disposition home or self-care (01) ==
LOC: HO.HMGCLDS 13:12
PROVIDERS: PCP Internal Medicine; Visit Provider Internal Medicine
DX: I12.9 Hypertensive chronic kidney disease with stage 1 through stage 4 chronic kidney disease, or unspecified chronic kidney disease (principal); N18.30 Chronic kidney disease, stage 3 unspecified
CPT/HCPCS: 36415; 80053; 85027

== ENCOUNTER 2024-07-28 09:31 | Outpatient (AMB) | payer MEDICARE, OTHER, SELFPAY ==
--- NOTE | 2024-07-28 09:39 | AM.OFFWIN_ITS ---
Intake Vital Signs 07/28/24 09:48 Weight 105 lb BP 122/74 Blood Pressure Location Rt brachial Position Sitting Pulse 82 Pulse Source Pulse Oximeter Temp 97.6 F Temp Source Oral Pulse Oximetry (%) 95 Oxygen Delivery Method Room Air Intake Visit Reasons: EP-cold symtoms Intake Note: Cough, congestion, mucus and fatigued which started Wednesday. Patient Tobacco Use Status: Never used Tobacco Allergies brimonidine Adverse Reaction (Verified 07/28/24 09:49) Anaphylaxis codeine Adverse Reaction (Verified 07/28/24 09:49) Nausea and Vomiting Iodinated Contrast Media Adverse Reaction (Verified 07/28/24 09:49) Anaphylaxis NSAIDS (Non-Steroidal Anti-Inflamma Adverse Reaction (Verified 07/28/24 09:49) chronic kidney disease simvastatin Adverse Reaction (Verified 07/28/24 09:49) leg weakness fruit Adverse Reaction (Uncoded 07/28/24 09:49) Nausea and Vomiting niacin Adverse Reaction (Uncoded 07/28/24 09:49) leg cramps Do you need a note to return to daycare/school/sports/work: No HPI HPI Comments History of Present Illness Details This is an 88-year-old female who presented to the walk-in clinic complaining of viral URI symptoms. She reports positive sick contact with her . She reports mild nasal congestion/rhinorrhea, sore throat, and productive cough with clear sputum. She also reports associated fatig ue/weakness. Patient states that her symptoms have significantly improved today; however, she is requesting COVID/flu/RSV test as they are seeing family this weekend. [facility] Medical History Viral upper respiratory tract infection with cough Family History Father No problems noted. Mother No problems noted. Social History Housing: Apartment Patient Tobacco Use Status: Never used Tobacco e-Cigarette/Vaping Use: Never Used service: No Current occupational status: retired Cognitive needs: No Hearing needs: Yes Vision needs: Yes Review of Systems Const All systems reviewed & are unremarkable except as noted in HPI and below Reports no additional complaints Eyes Reports no additional complaints ENT Reports no additional complaints Card Reports no additional complaints Resp Reports no additional complaints GI Reports no additional complaints Reports no additional complaints Musc Reports no additional complaints Skin/Breast Reports system reviewed and no additional complaints, except as documented Neuro Reports no additional complaints Psych Reports no additional complaints Endo Reports no additional complaints Ha/Lymph Reports no additional complaints Aller/Immun Reports no additional complaints Physical Exam Const Other: Vital signs reviewed. Constitutional: Non-toxic appearing. No acute distress. Well-developed and well-nourished. HEENT: Normocephalic and atraumatic. Tympanic membranes without erythema, edema, or bulging bilaterally. External auditory canals without erythema or edema bilaterally. Moist mucous membranes. No pharyngeal erythema or exudates. Skin: Warm and dry. No rashes or lesions noted. Neck: Full and painless range of motion. No cervical lymphadenopathy. Cardio: Regular rate and rhythm. No murmurs, gallops, or rubs. No lower extremity edema. No JVD. Pulmonary: No respiratory distress. No accessory muscle usage. Clear to auscultation bilaterally without wheezing, crackles, or rhonchi. Gastrointestinal: Soft, nontender, and nondistended in all 4 quadrants. Normoactive bowel sounds in all 4 quadrants. Musculoskeletal: Normal range of motion in joints throughout the body. No deformity or other signs of injury. Neuro: Alert and oriented x4. Cranial nerves 2-12 grossly intact. No focal deficits appreciated. Psych: Normal mood and affect. Assessment & Plan Assessment & Plan (1) Viral upper respiratory tract infection with cough: Code(s): J06.9 - Acute upper respiratory infection, unspecified Plan This is an 88-year-old female presenting to the walk-in clinic complaining of mild viral URI symptoms. Patient states her symptoms have actually significantly improved today but she is requesting COVID/flu/RSV testing as they are seeing family this weekend. Patient presenting with signs and symptoms most consistent with acute viral upper respiratory tract infection. Recommended symptomatic management including rest, increased fluids, advil/tylenol for pain/fever as long as patient has no medical contraindications, and over the counter throat lozenges/decongestants. COVID/flu/RSV sent. Patient advised to follow up here or go to the emergency room for worsening/persistent symptoms. Patient verbalized understanding and is agreeable with the plan. Coding Level of Care Code Est Pt Level 3 (23794) Diagnoses Viral upper respiratory tract infection with cough J06.9
[2024-07-28 09:48] VITALS: BP 122/74; PULSE 82; TEMP 36.4; O2SAT 95
== END 2024-07-28 10:45 | disposition home or self-care (01) ==
PROVIDERS: PCP Internal Medicine; Visit Provider Physician Assistant Medical
DX: J06.9 Acute upper respiratory infection, unspecified (principal)

== ENCOUNTER 2024-07-28 09:31 | Outpatient (REF) | payer MEDICARE, OTHER, SELFPAY ==
[2024-07-28 14:10] LABS: Influenza A PCR NEGATIVE (Negative); Influenza B PCR NEGATIVE (Negative); Resp Syncy Virus RNA Qual PCR NEGATIVE (Negative); SARS COV2 PCR INHOUSE NEGATIVE (Negative)
== END 2024-07-28 09:32 | disposition home or self-care (01) ==
LOC: HO.LAB 09:31
PROVIDERS: Physician Assistant Medical; PCP Internal Medicine; Visit Provider Nurse Practitioner Family
DX: J06.9 Acute upper respiratory infection, unspecified (principal)
CPT/HCPCS: 0241U; 99212

== ENCOUNTER 2024-09-15 12:23 | Outpatient (AMB) | payer MEDICARE, OTHER, SELFPAY ==
[2024-09-15 12:25] VITALS: BP 130/66; PULSE 82; O2SAT 96; BMI 39.0
--- NOTE | 2024-09-15 12:25 | MHC.PC.OV ---
Vital Signs 09/15/24 12:25 Height 5 ft 1 in Weight 206 lb 8 oz BMI 39.0 BP 130/66 Blood Pressure Location Lt brachial Position Sitting Pulse 82 Pulse Source Pulse Oximeter Pulse Oximetry (%) 96 Oxygen Delivery Method Room Air Intake Visit Reasons: Follow up - see comments Allergies brimonidine Adverse Reaction (Verified 09/15/24 12:25) Anaphylaxis codeine Adverse Reaction (Verified 09/15/24 12:25) Nausea and Vomiting Iodinated Contrast Media Adverse Reaction (Verified 09/15/24 12:25) Anaphylaxis NSAIDS (Non-Steroidal Anti-Inflamma Adverse Reaction (Verified 09/15/24 12:25) chronic kidney disease simvastatin Adverse Reaction (Verified 09/15/24 12:25) leg weakness fruit Adverse Reaction (Uncoded 07/28/24 09:49) Nausea and Vomiting niacin Adverse Reaction (Uncoded 07/28/24 09:49) leg cramps Medication List - Last Reconciled 09/15/24 by Jennifer Moreno MD amiloride 5 mg PO DAILY amlodipine 2.5 mg PO DAILY ascorbic acid (vitamin C) 500 mg PO DAILY aspirin 81 mg PO DAILY latanoprost 0.005% 1 drp ophthalmic (eye) DAILY metoprolol succinate ER 50 mg PO DAILY multivit with min-folic acid 200 mcg (Adult Multivitamin Gummies) tabs PO timolol maleate 0.5% 1 drp ophthalmic (eye) BID triamcinolone acetonide 0.1% 1 appl topical DAILY Tobacco use date assessed: 09/15/24 Fall risk assessment: No Falls in past year Last assessed Fall Risk: 09/15/24 Dental Screening Dental Screen Date: 09/15/24 Did you have a dental visit in the last 12 months?: Yes Did you have a dental problem in the last 6 months where you did not have access to dental care?: No Was dental information given to patient?: Patient has dentist HPI Follow up - see comments HPI Details Pt presents for f/u HTN, stable on meds. Pt c/o feeling off the balance getting worse, going towards left side for 1 month. She reports her left eye vision is getting progressively worse and she is established with Ophthalmology. Patient denies weakness or numbness in extremities headaches nausea or vomiting. She reports intermittent diarrhea for many months usually after breakfast but no abdominal pain, hematochezia melena weight lost fever chills. Patient has been under lot of stress going on [place]es[place] to [place] in October. [facility] Medical History (Updated 09/15/24 @ 13:37 by Jennifer Moreno MD) Viral upper respiratory tract infection with cough Family History Father No problems noted. Mother No problems noted. Social History Housing: Apartment Patient Tobacco Use Status: Never used Tobacco e-Cigarette/Vaping Use: Never Used service: No Current occupational status: retired Cognitive needs: No Hearing needs: Yes Vision needs: Yes Questionnaire PHQ-9 Over the last 2 weeks, how often have you been bothered by any of the following problems? 1. Little interest or pleasure in doing things: not at all 2. Feeling down, depressed, or hopeless: not at all 3. Trouble falling or staying asleep, or sleeping too much: not at all 4. Feeling tired or having little energy: not at all 5. Poor appetite or overeating: not at all 6. Feeling bad about yourself - or that you are a failure or have let yourself or your family down: not at all 7. Trouble concentrating on things, such as reading the newspaper or watching television: not at all 8. Moving or speaking so slowly that other people could have noticed. Or the opposite - being so fidgety or restless that you have been moving around a lot more than usual: not at all 9. Thoughts that you would be better off or of hurting yourself in some way: not at all Total score: 0 Depression Screening Interpretation: Negative Depression Screening Done: Yes 75521 - PHQ-9 Billing: Yes Source: Developed by Drs. Lane Meyers, Mere Kovacs, Zak Huitron and colleagues, with an educational arielle from [employer]. Thrive Questionnaire Date Thrive assessed: 09/15/24 I am a: Patient What is your living situation today?: I have a steady place to live Within the past 12 months, did the food you bought not last and you didn't have the money to get more?: Never true Within the past 12 months, did you worry whether your food would run out before you got money to buy more?: Never true Do you have trouble paying for medicines?: No Do you have trouble getting transportation to medical appointments?: No Do you have trouble paying your heating and electricity bill?: No Do you have trouble taking care of your child, family member or friend?: No Do you have trouble with day-to-day activities such as bathing, preparing meals, shopping, managing finances, etc.?: No Are you currently unemployed and looking for a job?: No Are you interested in more education?: No Please select the resources that you would like help with: None Currently or been in a relationship where the following occur: No concerns reported THRIVE Score: 0 AUDIT C Alcohol Use Questionnaire (AUDIT-C) 1. How often do you have a drink containing alcohol?: 2-4 times a month 2. How many drinks containing alcohol do you have on a typical day when you are drinking?: 1 or 2 3. How often do you have six or more drinks on one occasion?: Never Total Score: 2 Score Reviewed/Action Taken: Yes MATEO-7 AMB Questionnaire MATEO-7 Date MATEO - 7 assessed: 09/15/24 Feeling nervous, anxious, or on edge: 0 = Not at all Not being able to stop or control worryin = Not at all Worrying too much about different things: 0 = Not at all Trouble relaxin = Not at all Being so restless that it is hard to sit still: 0 = Not at all Becoming easily annoyed or irritable: 0 = Not at all Feeling afraid as if something awful might happen: 0 = Not at all Total MATEO-7 score (0-4 normal; 5-9 mild; 10-14 moderate; 15-21 severe): 0 Source: Developed by Drs. Lane Meyers, Mere Kovacs, Zak Huitron and colleagues, with an educational arielle from [employer]. MATEO-7 Assessment Billing MATEO-7 Assessment Tool: MATEO-7 Assessment 40686 Review of Systems Const All systems reviewed & are unremarkable except as noted in HPI and below Eyes Reports no additional complaints ENT Reports no additional complaints Card Reports no additional complaints Resp Reports no additional complaints GI Reports no additional complaints Reports no additional complaints Physical exam (Primary Care) Vital Signs: Last Vital Signs Pulse 82 09/15/24 12:25 BP 130/66 09/15/24 12:25 Pulse Ox 96 09/15/24 12:25 Oxygen Delivery Method Room Air 09/15/24 12:25 BMI result Body Mass Index 39.0 Tobacco/Smoking Status: Tobacco use Status Tobacco use date assessed 09/15/24 09/15/24 12:27 Patient Tobacco Use Status Never used Tobacco 09/15/24 12:27 e-Cigarette/Vaping Use Never Used 09/15/24 12:27 PHQ-9: PHQ-9 Score PHQ-9: Total score 0 09/15/24 12:43 Depression Screening Interpretation: Negative Thrive Assessment: Date of Thrive Assessment Date Thrive assessed 09/15/24 09/15/24 12:33 Currently or been in a relationship where the following occur: No concerns reported Const General: no acute distress HENMT Head: Yes normal to inspection Ears: TM's normal bilaterally Face and sinus: Yes normal facial exam Throat: Yes posterior oropharynx normal Eyes General: appearance normal, both eyes and all related structures Neck Neck: Yes no lymphadenopathy and Yes supple Resp Effort & Inspection: normal respiratory effort Auscultation: clear to auscultation bilaterally Cardio Rhythm: regular rhythm Heart sounds: S1 normal heart sound present and S2 normal heart sound present GI Inspection: Yes normal to inspection Palpation (GI): Soft to palpation Neuro General: CN's II-XI intact bilaterally Gait exam (Neuro): Normal gait present Motor exam (neuro): 5/5 motor strength present throughout Coordination: [id number] test normal Romberg Test: Negative Coding Level of Care Code Est Pt Level 4 (39918) Diagnoses HTN (hypertension) I10 CKD (chronic kidney disease), stage III N18.30 Hyperlipidemia E78.5 Balance problem R26.89 Vision loss, left eye H54.62 IBS (irritable bowel syndrome) K58.9 Additional Codes MATEO-7 Assessment Billing - MATEO-7 Assessment Tool: MATEO-7 Assessment 75402 ([id number]) PHQ-9 - 08831 - PHQ-9 Billing: Yes ([id number]) Assessment & Plan Assessment & Plan (1) HTN (hypertension): Code(s): I10 - Essential (primary) hypertension Category: Medical Plan: Continue current medications (2) CKD (chronic kidney disease), stage III: Comment: Chronic, since 2019, Renal US small kidneys consistent with chronic kidney disease and bilateral renal cysts Code(s): N18.30 - Chronic kidney disease, stage 3 unspecified Category: Medical Plan: Monitor renal function avoid nephrotoxins (3) Hyperlipidemia: Comment: INTOLERANT TO STATINS Code(s): E78.5 - Hyperlipidemia, unspecified Category: Medical Plan: Continue low-cholesterol diet (4) Balance problem: Comment: Due to 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 Code(s): R26.89 - Other abnormalities of gait and mobility Category: Medical Plan: Physical therapy was recommended but patient (5) Vision loss, left eye: Code(s): H54.62 - Unqualified visual loss, left eye, normal vision right eye Category: Medical Plan: Follow-up with ophthalmology (6) IBS (irritable bowel syndrome): Code(s): K58.9 - Irritable bowel syndrome, unspecified Category: Medical Plan: Patient was advised to try probiotics Citrucel and Imodium as needed, hemoccult will be checked Orders: Orders Vitamin D 25-OH Total Today E78.5 - Hyperlipidemia, unspecified, I10 - Essential (primary) hypertension, J44.9 - Chronic obstructive pulmonary disease, unspecified, N18.30 - Chronic kidney disease, stage 3 unspecified Comprehensive [place]. Panel Fast 6 Months E78.5 - Hyperlipidemia, unspecified, I10 - Essential (primary) hypertension, N18.30 - Chronic kidney disease, stage 3 unspecified TSH reflex Free T4 6 Months E78.5 - Hyperlipidemia, unspecified, I10 - Essential (primary) hypertension, N18.30 - Chronic kidney disease, stage 3 unspecified Comprehensive Met. Panel Today E78.5 - Hyperlipidemia, unspecified, I10 - Essential (primary) hypertension, J44.9 - Chronic obstructive pulmonary disease, unspecified, N18.30 - Chronic kidney disease, stage 3 unspecified Complete Blood Count Auto Diff Today E78.5 - Hyperlipidemia, unspecified, I10 - Essential (primary) hypertension, J44.9 - Chronic obstructive pulmonary disease, unspecified, N18.30 - Chronic kidney disease, stage 3 unspecified Complete Blood Count Auto Diff 6 Months E78.5 - Hyperlipidemia, unspecified, I10 - Essential (primary) hypertension, N18.30 - Chronic kidney disease, stage 3 unspecified Medications: Refilled metoprolol succinate ER 50 mg PO DAILY 90 tabs 3RF amiloride 5 mg PO DAILY 90 tabs 3RF amlodipine 2.5 mg PO DAILY 90 tabs 3RF
== END 2024-09-15 13:39 | disposition home or self-care (01) ==
PROVIDERS: PCP Internal Medicine; Visit Provider Internal Medicine
DX: I10 Essential (primary) hypertension (principal); N18.30 Chronic kidney disease, stage 3 unspecified; E78.5 Hyperlipidemia, unspecified; R26.89 Other abnormalities of gait and mobility; H54.62 Unqualified visual loss, left eye, normal vision right eye; K58.9 Irritable bowel syndrome, unspecified

== ENCOUNTER → 2024-09-15 12:23 | Outpatient (BNVA) | payer MEDICARE, OTHER, SELFPAY | PROVIDERS: PCP Internal Medicine; Visit Provider Internal Medicine | DX: I12.9 Hypertensive chronic kidney disease with stage 1 through stage 4 chronic kidney disease, or unspecified chronic kidney disease (principal); N18.30 Chronic kidney disease, stage 3 unspecified; E78.5 Hyperlipidemia, unspecified; R26.89 Other abnormalities of gait and mobility; H54.62 Unqualified visual loss, left eye, normal vision right eye; K58.9 Irritable bowel syndrome, unspecified | CPT/HCPCS: 96127; 99212 ==

== ENCOUNTER 2024-09-17 16:55 | Emergency (ER) | payer MEDICARE, OTHER, SELFPAY ==
--- NOTE | ~2024-09-17 | XR_ITS ---
EXAMINATION: XR CHEST CLINICAL INFORMATION: Pneumonia COMPARISON: Chest radiograph 11/27/2023 CT abdomen 11/19/2023 TECHNIQUE: Frontal view of the chest was obtained. FINDINGS: There is mild cardiac enlargement. No evidence of CHF. A suture line is present in the left upper lobe. Some chronic scarring or atelectasis is present in the right midlung and right lung base. Similar findings can be seen at the right lung base on the 11/19/2023 CT scan of the abdomen. No acute consolidations with air bronchograms are seen. No pleural effusions. XR/XR chest 1V IMPRESSION: No acute intrathoracic disease. Chronic changes as described above. Electronically signed by: Evens Loomis MD 09/17/2024 05:39 PM [facility]
[2024-09-17 16:58] VITALS: BP 140/62; PULSE 104; RESP 19; TEMP 36.8; O2SAT 93; BMI 19.4
--- NOTE | 2024-09-17 17:06 | ED.GENADULT ---
HPI - General Adult General Chief complaint: Upper Respiratory Symptoms Stated complaint: cough. Sent from Urgent Care for xray History of Present Illness HPI narrative: Patient left before completing treatment by ED provider Related Data Home Medications ?Medication ?Instructions ?Recorded ?Confirmed ascorbic acid (vitamin C) 250 mg 500 mg PO DAILY 06/16/22 09/15/24 chewable tablet multivitamin with minerals-folic tab PO 06/16/22 09/15/24 acid 200 mcg chewable tablet (Adult Multivitamin Gummies) aspirin 81 mg tablet,delayed 81 mg PO DAILY 03/30/23 09/15/24 release latanoprost 0.005 % eye drops 1 drp ophthalmic (eye) DAILY 03/30/23 09/15/24 timolol maleate 0.5 % eye drops 1 drp ophthalmic (eye) BID 03/30/23 09/15/24 triamcinolone acetonide 0.1 % 1 appl topical DAILY 03/30/23 09/15/24 topical ointment Previous Rx's ?Medication ?Instructions ?Recorded amiloride 5 mg tablet 5 mg PO DAILY #90 tabs 09/15/24 amlodipine 2.5 mg tablet 2.5 mg PO DAILY #90 tabs 09/15/24 metoprolol succinate 50 mg 50 mg PO DAILY #90 tabs 09/15/24 tablet,extended release 24 hr Allergies Allergy/AdvReac Type Severity Reaction Status Date / Time brimonidine AdvReac Anaphylaxis Verified 09/17/24 17:01 codeine AdvReac Nausea and Verified 09/17/24 17:01 Vomiting Iodinated Contrast Media AdvReac Anaphylaxis Verified 09/17/24 17:01 NSAIDS (Non-Steroidal AdvReac chronic Verified 09/17/24 17:01 Anti-Inflamma kidney disease simvastatin AdvReac leg Verified 09/17/24 17:01 weakness fruit AdvReac Nausea and Uncoded 09/17/24 17:01 Vomiting niacin AdvReac leg cramps Uncoded 09/17/24 17:01 [facility] Past Medical History Medical History (Updated 09/18/24 @ 11:38 by NANCY Ortega) Viral upper respiratory tract infection with cough Family History Family History Father No problems noted. Mother No problems noted. Social History Social History Housing: Apartment Patient Tobacco Use Status: Never used Tobacco e-Cigarette/Vaping Use: Never Used service: No Current occupational status: retired Cognitive needs: No Hearing needs: Yes Vision needs: Yes Physical Exam ED Vital Signs: Vital Signs - 24 hr 09/17/24 16:58 Temperature 98.2 F Pulse Rate 104 H Respiratory Rate 19 Blood Pressure 140/62 H Pulse Oximetry 93 Oxygen Delivery Method Room Air BMI result Body Mass Index 19.4 Course Course Course Narrative: RME: DOne by NANCY Topete. In 8-year-old female presents to ED for headache, nasal congestion, sore throat, and laryngitis. Patient is sent from urgent care for chest x-ray due to history of pneumonia. Patient had negative COVID, RSV, flu, and strep at urgent Care Discharge Plan Discharge Clinical Impression: Cough, URI (upper respiratory infection) Patient Disposition: Left W/O Completing Treatment Prescriptions: No Action triamcinolone acetonide 0.1 % ointment 1 appl topical DAILY aspirin 81 mg tablet,delayed release (DR/EC) 81 mg PO DAILY Adult Multivitamin Gummies 200 mcg tablet,chewable PO ascorbic acid (vitamin C) 250 mg tablet,chewable 500 mg PO DAILY latanoprost 0.005 % drops 1 drp ophthalmic (eye) DAILY Rx Instructions: R eye only timolol maleate 0.5 % drops 1 drp ophthalmic (eye) BID Rx Instructions: R eye only metoprolol succinate 50 mg tablet extended release 24 hr 50 mg PO DAILY Qty: 90 3RF amiloride 5 mg tablet 5 mg PO DAILY Qty: 90 3RF amlodipine 2.5 mg tablet 2.5 mg PO DAILY Qty: 90 3RF Discharge Date/Time: 09/17/24 18:22
== END 2024-09-17 18:22 | disposition left against medical advice (07) ==
PROVIDERS: Emergency Provider Emergency Medicine Emergency Medical Services
DX: J06.9 Acute upper respiratory infection, unspecified (principal); R05.9 Cough, unspecified
CPT/HCPCS: 71045; 99281

== ENCOUNTER 2024-09-18 09:24 | Outpatient (REF) | payer MEDICARE, OTHER, SELFPAY ==
[2024-09-18 13:18] LABS: MANUAL DIFF FLAG NO
[2024-09-18 13:33] LABS: Basophils Absolute Auto 0.1 X10*3/uL (0.0-0.2); Basophils Percent Auto 0.4 % (0-2); Eosinophils Absolute Auto 0.1 X10*3/uL (0.0-0.4); Eosinophils Percent Auto 0.3 % (0-4); Hemoglobin 12.4 g/dl (12.0-16.0); Imm Gran Abs Auto 0.09 X10*3/uL (0.00-0.03); Imm Gran Pct Auto 0.5 % (0.0-0.4); Lymphocytes Absolute Auto 0.7 X10*3/uL (1.2-4.9); Mean Corpuscular HGB Conc 31.8 g/dl (31.0-35.0); Mean Corpuscular Hemoglobin 31.2 pg (27.0-33.0); Mean Corpuscular Volume 98.2 fL (80.0-98.0); Mean Platelet Volume 11.8 fL (9.4-12.3); Monocytes Absolute Auto 1.4 X10*3/uL (0.1-1.2); Monocytes Percent Auto 8.2 % (2-11); Neutrophils Absolute Auto 14.8 x10*3/uL (2.0-8.3); Neutrophils Percent Auto 86.6 % (45-73); Platelet Count 244 X10*3/uL (160-400); Red Blood Count 3.97 X10*6/uL (4.20-5.50); Red Cell Distribution Width 12.6 % (11.0-16.0); White Blood Count 17.1 X10*3/uL (4.8-10.8)
[2024-09-18 14:19] LABS: Alanine Aminotransferase 16 U/L (0-31); Alkaline Phosphatase 99 U/L (39-117); Anion Gap 13 (12-20); Aspartate Amino Transferase 26 U/L (5-31); Blood Urea Nitrogen 26 mg/dL (9-16); Calcium 9.7 mg/dL (8.4-10.2); Carbon Dioxide 26 mmol/L (22-29); Chloride 102 mmol/L (96-108); Estimated Glomerular Filt Rate 46; Glucose Fasting 93 mg/dL (60-99); Potassium 4.2 mmol/L (3.3-5.1); Sodium 137 mmol/L (135-145); Total Protein 7.4 g/dL (6.5-8.0)
[2024-09-18 14:23] LABS: TSH reflex Free T4 1.14 uIU/mL (0.32-4.0)
== END 2024-09-18 09:25 | disposition home or self-care (01) ==
LOC: HO.HMGCX 09:24
PROVIDERS: PCP Internal Medicine; Referring Provider Nurse Practitioner; Visit Provider Internal Medicine
DX: R05.1 Acute cough (principal); I10 Essential (primary) hypertension; R42 Dizziness and giddiness; E78.5 Hyperlipidemia, unspecified; N18.30 Chronic kidney disease, stage 3 unspecified
CPT/HCPCS: 36415; 71046; 80053; 84443; 85025

== ENCOUNTER 2025-03-20 08:18 | Outpatient (AMB) | payer MEDICARE, OTHER, SELFPAY ==
--- OUTSIDE RECORDS SUMMARY | 2025-03-20 08:25 | XMS_ITS | Patient Health Record ---
Author Organization [facility] Address [address] [place] [address] [address] [place], [place] [id number] Care Team Providers Care Wastewater Engineer Name Role Phone Lewis Gomez MD Primary Care Provider Dr Lane Holland Unavailable [phone] Allergies Allergen (clinical drug ingredient) Drug/Non Drug Allergy documented on EMR Reaction Allergy Type Onset Date Status Codeine Phosphate Unknown Drug Allergy Active niacin Niacin Unknown Drug Allergy Active Simvastatin Unknown Drug Allergy Activ e Reason For Referral No Information Medications Medication SIG (Take, Route, Frequency, Duration) Notes Start Date End Date Status Omeprazole 20 MG (Prior Auth#:[id number]) Oral for 30 Active Betamethasone Dipropionate 0 .05 % (Prior Auth#:[id number]) External for 8 Active Mupirocin 2 % (Prior Auth#:[id number]) External for 7 Active Metoprolol Succinate ER 25 MG (Prior Auth#:[id number]) Oral for 90 Active hydroCHLOROthiazide 12.5 MG (Prior Auth#:[id number]) Oral for 90 Active aMILoride HCl 5 MG (Prior Auth#:[id number]) Oral for 90 Active Latanoprost 0.005 % (Prior Auth#:[id number]) Ophthalmic for 37 Active Timolol Maleate 0.5 % (Prior Auth#:[id number]) Ophthalmic for 75 Active Immunizations Vaccine Route Administration Date Status Comme nts Influenza (split), 3 yrs and above Unknown 07/09/2021 A dministered Pneumococcal conjugate PCV 13 Unknown 07/09/2021 Admini stered Social History Tobacco Use: Social History Observation Description Date Details (start date - stop date) Never Smoker NA - NA Tobacco Use/Smoking Question Answer Notes Are you a nonsmoker Alcohol Screen (Audit-C) Question Answer Notes Did you have a drink containing alcohol in the p ast year? No Points 0 Interpretation Negative Problems Problem Type SNOMED Code ICD Code Onset Dates Problem Status W/U Status Risk Notes Problem Generalized atherosclerosis (14794872) Generalized atherosclerosis (I70.91) Active confirmed Plan Of Treatment No Information Insurance Providers Payer Name Payer Address Payer Phone Subscriber Number Group Number Insured Name Patient Relationship to Insured Coverage Start Date Coverage End Date Medicare [address] [facility] [place] [address] [id number] Ambreen Storm Self - patient is the insured 1 [employer] Claims Processing [address] [place] [address] [id number] Ambreen Storm Self - patient is the insured 0 Medical (General) History Medical History History ICD Code Hypertension Kidney Disease Surgical History Surgery Date(Month/Year)
[2025-03-20 08:45] VITALS: BP 126/76; PULSE 64; RESP 18; TEMP 36.5; O2SAT 97; BMI 18.7
--- NOTE | 2025-03-20 08:45 | A.OFFPC_ITS ---
Vital Signs 03/20/25 08:45 Height 5 ft 2 in Weight 102 lb BMI 18.7 BP 126/76 Blood Pressure Location Lt brachial Position Sitting Respiration 18 Pulse 64 Pulse Source Pulse Oximeter Temp 97.7 F Temp Source Oral Pulse Oximetry (%) 97 Oxygen Delivery Method Room Air Intake Visit Reasons: rectal bleeding, ok per Dr Bautista Intake Note: Pt is here today for a sick visit. Pt c/o rectal bleeding. Allergies brimonidine Adverse Reaction (Verified 03/20/25 08:49) Anaphylaxis codeine Adverse Reaction (Verified 03/20/25 08:49) Nausea and Vomiting Iodinated Contrast Media Adverse Reaction (Verified 03/20/25 08:49) Anaphylaxis NSAIDS (Non-Steroidal Anti-Inflamma Adverse Reaction (Verified 03/20/25 08:49) chronic kidney disease simvastatin Adverse Reaction (Verified 03/20/25 08:49) leg weakness fruit Adverse Reaction (Uncoded 03/20/25 08:49) Nausea and Vomiting niacin Adverse Reaction (Uncoded 03/20/25 08:49) leg cramps Medication List - Last Reconciled 03/20/25 by Jennifer Moreno MD amiloride 5 mg PO DAILY amlodipine 2.5 mg PO DAILY ascorbic acid (vitamin C) 500 mg PO DAILY aspirin 81 mg PO DAILY latanoprost 0.005% 1 drp ophthalmic (eye) DAILY metoprolol succinate ER 50 mg PO DAILY multivit with min-folic acid 200 mcg (Adult Multivitamin Gummies) tabs PO timolol maleate 0.5% 1 drp ophthalmic (eye) BID triamcinolone acetonide 0.1% 1 appl topical DAILY Tobacco use date assessed: 03/20/25 Fall risk assessment: No Falls in past year Last assessed Fall Risk: 03/20/25 Dental Screening Dental Screen Date: 03/20/25 Did you have a dental visit in the last 12 months?: Yes Did you have a dental problem in the last 6 months where you did not have access to dental care?: No Was dental information given to patient?: Patient has dentist HPI rectal bleeding, ok per Dr Bautista HPI Details Patient reports 2 episodes of bright red blood per rectum and having a stool mixed with the blood yesterday. Patient noticed black stools in the last week a few times. She has a diarrhea on and off but denies abdominal pain nausea vomiting. Patient denies lightheadedness dizziness fatigue, chest pain no shortness of breath. [facility] Medical History (Updated 03/20/25 @ 12:43 by Jennifer Moreno MD) OMER (dyspnea on exertion) HTN (hypertension) CKD (chronic kidney disease), stage III Hyperlipidemia Rectal bleeding Viral upper respiratory tract infection with cough Family History Father No problems noted. Mother No problems noted. Social History Housing: Apartment Patient Tobacco Use Status: Never used Tobacco e-Cigarette/Vaping Use: Never Used service: No Current occupational status: retired Cognitive needs: No Hearing needs: Yes Vision needs: Yes Questionnaire PHQ-9 Over the last 2 weeks, how often have you been bothered by any of the following problems? 1. Little interest or pleasure in doing things: not at all 2. Feeling down, depressed, or hopeless: not at all 3. Trouble falling or staying asleep, or sleeping too much: not at all 4. Feeling tired or having little energy: not at all 5. Poor appetite or overeating: not at all 6. Feeling bad about yourself - or that you are a failure or have let yourself or your family down: not at all 7. Trouble concentrating on things, such as reading the newspaper or watching television: not at all 8. Moving or speaking so slowly that other people could have noticed. Or the opposite - being so fidgety or restless that you have been moving around a lot more than usual: not at all 9. Thoughts that you would be better off or of hurting yourself in some way: not at all Total score: 0 Depression Screening Interpretation: Negative Depression Screening Done: Yes 87108 - PHQ-9 Billing: Yes Source: Developed by Drs. Lane Meyers, Mere Kovacs, Zak Huitron and colleagues, with an educational arielle from [employer]. Thrive Questionnaire Date Thrive assessed: 03/20/25 I am a: Patient What is your living situation today?: I have a steady place to live Within the past 12 months, did the food you bought not last and you didn't have the money to get more?: Never true Within the past 12 months, did you worry whether your food would run out before you got money to buy more?: Never true Do you have trouble paying for medicines?: No Do you have trouble getting transportation to medical appointments?: No Do you have trouble paying your heating and electricity bill?: No Do you have trouble taking care of your child, family member or friend?: No Do you have trouble with day-to-day activities such as bathing, preparing meals, shopping, managing finances, etc.?: No Are you currently unemployed and looking for a job?: No Are you interested in more education?: No Please select the resources that you would like help with: None Currently or been in a relationship where the following occur: No concerns reported THRIVE Score: 0 MATEO-7 AMB Questionnaire MATEO-7 Date MATEO - 7 assessed: 03/20/25 Source: Developed by Drs. Lane Meyers, Mere Kovacs, Zak Huitron and colleagues, with an educational arielle from [employer] [facility]. Review of Systems Const All systems reviewed & are unremarkable except as noted in HPI and below Eyes Reports no additional complaints ENT Reports no additional complaints Card Reports no additional complaints Resp Reports no additional complaints GI Reports no additional complaints Reports no additional complaints Physical exam (Primary Care) Vital Signs: Last Vital Signs Temp 97.7 F 03/20/25 08:45 Pulse 64 03/20/25 08:45 Resp 18 03/20/25 08:45 BP 126/76 03/20/25 08:45 Pulse Ox 97 03/20/25 08:45 Oxygen Delivery Method Room Air 03/20/25 08:45 BMI result Body Mass Index 18.7 Tobacco/Smoking Status: Tobacco use Status Tobacco use date assessed 03/20/25 03/20/25 08:58 Patient Tobacco Use Status Never used Tobacco 03/20/25 08:58 e-Cigarette/Vaping Use Never Used 03/20/25 08:58 PHQ-9: PHQ-9 Score PHQ-9: Total score 0 03/20/25 08:58 Depression Screening Interpretation: Negative Thrive Assessment: Date of Thrive Assessment Date Thrive assessed 03/20/25 03/20/25 08:58 Currently or been in a relationship where the following occur: No concerns reported Const General: no acute distress HENMT Head: Yes normal to inspection Neck Neck: Yes supple Resp Effort & Inspection: normal respiratory effort Auscultation: clear to auscultation bilaterally Cardio Rhythm: regular rhythm Heart sounds: S1 normal heart sound present and S2 normal heart sound present GI Inspection: Yes normal to inspection Palpation (GI): Soft to palpation Percussion: Yes normal to percussion Auscultation: normal bowel sounds Rectal Exam - Female: visual inspection normal, normal sphincter tone, heme positive stool (Soft stool mixed with blood) and No hemorrhoids Coding Level of Care Code Est Pt Level 3 (08254) Diagnoses Rectal bleeding K62.5 Additional Codes PHQ-9 - 71727 - PHQ-9 Billing: Yes ([id number]) Assessment & Plan Assessment & Plan (1) Rectal bleeding: Comment: Two episodes on 03/19/2025 Code(s): K62.5 - Hemorrhage of anus and rectum Category: Medical Plan: Patient was advised to stop taking aspirin. CBC comprehensive panel and iron count will be checked. Patient is referred to GI as soon as possible. She was advised to go to the emergency room for any recurrent bleeding or symptoms of chest pain lightheadedness dizziness. Orders: Orders Complete Blood Count Auto Diff Today K62.5 - Hemorrhage of anus and rectum IRON PROFILE Today K62.5 - Hemorrhage of anus and rectum Comprehensive Met. Panel Today K62.5 - Hemorrhage of anus and rectum Referrals Gastroenterology Referral K62.5 - Hemorrhage of anus and rectum
== END 2025-03-20 09:20 | disposition home or self-care (01) ==
LOC: HO.HMCC 08:19
PROVIDERS: PCP Internal Medicine; Visit Provider Internal Medicine
DX: K62.5 Hemorrhage of anus and rectum (principal)

== ENCOUNTER 2025-03-20 08:18 | Outpatient (REF) | payer MEDICARE, OTHER, SELFPAY ==
[2025-03-20 13:16] LABS: MANUAL DIFF FLAG NO
[2025-03-20 13:23] LABS: Basophils Absolute Auto 0.1 X10*3/uL (0.0-0.2); Basophils Percent Auto 1.6 % (0-2); Eosinophils Absolute Auto 0.4 X10*3/uL (0.0-0.4); Eosinophils Percent Auto 5.9 % (0-4); Hematocrit 40.2 % (37.0-47.0); Hemoglobin 12.8 g/dl (12.0-16.0); Imm Gran Abs Auto 0.02 X10*3/uL (0.00-0.03); Imm Gran Pct Auto 0.3 % (0.0-0.4); Lymphocytes Percent Auto 15.4 % (20-40); Mean Corpuscular HGB Conc 31.8 g/dl (31.0-35.0); Mean Corpuscular Hemoglobin 31.5 pg (27.0-33.0); Mean Platelet Volume 11.5 fL (9.4-12.3); Monocytes Absolute Auto 0.6 X10*3/uL (0.1-1.2); Monocytes Percent Auto 9.9 % (2-11); Neutrophils Absolute Auto 4.3 x10*3/uL (2.0-8.3); Neutrophils Percent Auto 66.9 % (45-73); Platelet Count 302 X10*3/uL (160-400); Red Blood Count 4.06 X10*6/uL (4.20-5.50); Red Cell Distribution Width 12.5 % (11.0-16.0); White Blood Count 6.4 X10*3/uL (4.8-10.8)
[2025-03-20 14:01] LABS: Alanine Aminotransferase 13 U/L (0-31); Alkaline Phosphatase 78 U/L (39-117); Anion Gap 10 (12-20); Aspartate Amino Transferase 24 U/L (5-31); Bilirubin Total 0.5 mg/dL (0.0-1.0); Blood Urea Nitrogen 30 mg/dL (9-16); Calcium 9.3 mg/dL (8.4-10.2); Carbon Dioxide 29 mmol/L (22-29); Chloride 104 mmol/L (96-108); Estimated Glomerular Filt Rate 45; Glucose Random 86 mg/dL (60-115); Iron 114 mcg/dL (30-160); Percent Iron Saturation 40 % (15-50); Potassium 4.1 mmol/L (3.3-5.1); Sodium 139 mmol/L (135-145); Total Iron Binding Capacity 288 mcg/dL (228-428); Total Protein 7.5 g/dL (6.5-8.0); Unsaturated Iron Binding 174 ug/dL
== END 2025-03-20 08:19 | disposition home or self-care (01) ==
LOC: HO.HMGCLDS 08:18
PROVIDERS: PCP Internal Medicine; Visit Provider Internal Medicine
DX: K62.5 Hemorrhage of anus and rectum (principal)
CPT/HCPCS: 36415; 80053; 83540; 85025; 96127; 99212

== ENCOUNTER 2025-04-02 13:52 | Outpatient (REF) | payer MEDICARE, OTHER, SELFPAY ==
--- OUTSIDE RECORDS SUMMARY | 2025-04-02 15:07 | XMS_ITS | Patient Health Record ---
Author Organization [facility] Address [address] [place] [address] Care Team Providers Care Assistant Football Coach Name Role Phone Jennifer Moreno MD Primary Care Provider Genaro Gutierrez Jr Unavailable [phone] Allergies Allergen (clinical drug ingredient) Drug/Non Drug Allergy documented on EMR Reaction Allergy Type Onset Date Status simvastatin Simvastatin Unknown Drug Allergy Act henok niacin Niacin Unknown Drug Allergy Active Iodinated contrast media (substance) Iodinated Contrast Media Unknown Drug Allergy Active codeine Codeine Unknown Drug Allergy Active Fruit C Unknown Drug Allergy Active Non-steroidal anti-inflammatory agent (FN) NSAIDs Unknown Drug Allergy Active Reason For Referral No Information Medications Medication SIG (Take, Route, Frequency, Duration) Notes Start Date End Date Status Multivitamin with folic acid A ctive Latanoprost 0.005 % 1 drop into affected eye in the evening Ophthalmic Once a day Active Metoprolol Succinate ER 50 MG 1 tablet Orally Once a day Active Ascorbic Acid 500 MG 1 tablet Orally Onc e a day Active Aspirin 81 81 MG 1 tablet Orally Once a day Active aMILoride HCl 5 MG 1 tablet with food Orally Once a day Active amLODIPine Besylate 2.5 MG 1 tablet Orally Once a day Active Timolol Maleate Acti ve Triamcinolone Acetonide Active Social History Tobacco Use: Social History Observation Description Date Details (start date - stop date) Never Smoker NA - NA Tobacco Control (Standard) Question Answer Notes Tobacco use: Nonsmoker AUDIT-C (Standard) Question Answer Notes Did you have a drink contain ing alcohol in the past year? Yes How often did you have a dri nk containing alcohol in the past year? 2 to 3 times a week (3 points) How many drinks did you have on a typical day when you were drinking in the past year? 1 or 2 drinks (0 point) How often did you have six o r more drinks on one occasion in the past year? Never (0 point) Points 3 Interpretation Positive Section Notes: glass of wine couple times a week after dinner Problems No Known Problems Vital Signs Blood pressure diastolic 77 mm Hg 03/29/2025 Height 62 in 03/29/2025 Blood pressure systolic 111 mm Hg 03/29/2025 Weight 103 lbs 03/29/2025 BMI 18.84 kg/m2 03/29/2025 Encounters Encounter Location Date Provider Diagnosis [facility] [address] [place] [address] 03/29/2025 Genaro Hernandez Jr Rectal bleeding K62.5 Assessments Encounter Date Diagnosis (ICD Code) Assessment Notes Treatment Notes Treatment Clinical Notes Section Notes 03/29/2025 Rectal bleeding (ICD-10 - K62.5) We discussed the causes of rectal bleeding today including hemorrhoids, AVMs, tumors, cancer, and polyps. Without doing an invasive colonoscopy, there is really no way to know what caused her symptoms and even that might be completely normal. We discussed this as well. We discussed risks and benefits of the procedure today. She is inclined to monitor things for the time being and avoid invasive procedures. We discussed that she should call immediately if she has any recurrent rectal bleeding. She will follow-up on a as needed basis. Plan Of Treatment No Information Insurance Providers Payer Name Payer Address Payer Phone Subscriber Number Group Number Insured Name Patient Relationship to Insured Coverage Start Date Coverage End Date MEDICARE OF [place] [address] [place] [id number] MAURICE BELLA Self - patient is the insured 1 [employer] [address] [place] [address] [id number] BRO BELLAERINE Self - patient is the insured 6 Medical (General) History Medical History History ICD Code Hypertension Chronic kidney disease stage III Pneumonia Dyspnea on exertion Hyperlipidemia Rectal bleeding Surgical History Surgery Date(Month/Year) left upper lobe lung, Benign disease 201 8 removal of thyroid cyst cateracts bilateral tonsillectomy
[2025-04-02 16:10] LABS: MANUAL DIFF FLAG NO
[2025-04-02 16:15] LABS: Basophils Absolute Auto 0.1 X10*3/uL (0.0-0.2); Basophils Percent Auto 0.9 % (0-2); Eosinophils Absolute Auto 0.6 X10*3/uL (0.0-0.4); Eosinophils Percent Auto 8.4 % (0-4); Hematocrit 37.4 % (37.0-47.0); Hemoglobin 12.2 g/dl (12.0-16.0); Imm Gran Abs Auto 0.02 X10*3/uL (0.00-0.03); Imm Gran Pct Auto 0.3 % (0.0-0.4); Lymphocytes Absolute Auto 1.6 X10*3/uL (1.2-4.9); Lymphocytes Percent Auto 21.1 % (20-40); Mean Corpuscular HGB Conc 32.6 g/dl (31.0-35.0); Mean Corpuscular Hemoglobin 31.6 pg (27.0-33.0); Mean Corpuscular Volume 96.9 fL (80.0-98.0); Mean Platelet Volume 11.6 fL (9.4-12.3); Monocytes Absolute Auto 0.8 X10*3/uL (0.1-1.2); Monocytes Percent Auto 10.3 % (2-11); Neutrophils Absolute Auto 4.4 x10*3/uL (2.0-8.3); Platelet Count 241 X10*3/uL (160-400); Red Blood Count 3.86 X10*6/uL (4.20-5.50); Red Cell Distribution Width 12.6 % (11.0-16.0); White Blood Count 7.4 X10*3/uL (4.8-10.8)
[2025-04-02 17:10] LABS: Vitamin D 25-OH Total 77.9 ng/mL (>30)
== END 2025-04-02 13:53 | disposition home or self-care (01) ==
LOC: HO.HMGCLDS 13:52
PROVIDERS: PCP Internal Medicine; Visit Provider Internal Medicine
DX: K62.5 Hemorrhage of anus and rectum (principal)
CPT/HCPCS: 36415; 82306; 85025

== ENCOUNTER → 2025-08-08 09:26 | Outpatient (REF) | payer MEDICARE, OTHER, SELFPAY ==
--- NOTE | 2025-08-08 09:32 | CA_ITS ---
Transthoracic Echocardiogram Patient (Last, First, Middle): Ambreen Storm Patricia Gender: F Date of : 1935 Age: 89 Procedure Date: 08/08/2025 Procedure Type: Transthoracic Echocardiogram Location: OP Height: 157.48 cm Weight: 46.27 kg BSA: 1.44 m2 Heart Rate: bpm BP: 126 / 76 mmHg Reel Fed Printer: [id number] Referring MD: Spike Gaston DO Desulfurizer Machine: Soham Caldwell MD Symptoms: HEART MURMUR Study Quality: Fair ECG Rhythm: Sinus Conclusions: - 1. Normal LV ejection fraction of 60 65% with grade 1 diastolic dysfunction 2. Moderate eccentric mitral regurgitation which may be underestimated 3. Normal RV systolic pressure 4. No gross pericardial effusion Findings Left Ventricle Normal left ventricular size, thickness, and systolic function. The visually estimated ejection fraction is between 60-65%. Spectral Doppler is indicative of an impaired relaxation filling pattern. E/E prime ratio is <8, consistent with normal filling pressures. Wall Motion Rest Echo Findings The basal inferolateral segment is hypokinetic. The basal inferior and basal inferoseptal segments are akinetic. All other scored wall segments showed normal motion. Right Ventricle Normal right ventricular cavity size and systolic function. Atria The left atrium is likely dilated. There is no evidence of interatrial shunt. The right atrium is normal in size. Aortic Valve Normal aortic valve structure and function. There is mild calcification of the aortic valve. There is no aortic valve stenosis. There is no aortic valve regurgitation. Mitral Valve There is mild anterior and posterior mitral leaflet thickening. There is mild posterior mitral leaflet prolapse. There is moderate mitral valve regurgitation. The mitral regurgitation jet is directed anteriorly. There is no mitral valve stenosis. Pulmonic Valve The pulmonic valve is likely normal. There is trace pulmonic valve regurgitation. Tricuspid Valve Normal tricuspid valve structure. There is mild tricuspid valve regurgitation. The right ventricular systolic pressure is normal. The right ventricular systolic pressure is 33 mmHg. Normal right atrial pressure. There is no evidence of pulmonary hypertension. Great Vessels All visible segments of the aorta are normal in size. The pulmonary artery was not well visualized. There is no dilatation of the ascending aorta measuring 3.10 cm. Venous The inferior vena cava is normal in size and collapses greater than 50% with inspiration. Pericardium/Pleural There is no evidence of pericardial effusion. Prior Study Comparison Changes noted compared to prior study dated: 08/13/2022. mitral regurgitation appears to be moderate Measurements 2D Linear Measurements IVSd: 1.02 0.6-0.9/0.6-1.0 cm LVIDd: 4.91 3.9-5.3/4.2-5.9 cm LVIDd Index: 3.41 2.4-3.2/2.2-3.1 cm/m2 LVIDs: 3.15 2.0-3.6 cm LVPWd: 0.83 0.7-1.1 cm LA Diam: 3.70 2.7-3.8/3.0-4.0 cm LAIDs Index: 2.57 1.5-2.3 cm/m2 LV Mass: 197.60 67-162/88-224 g LV Mass Index: 137.22 43-95/49-115 g/m2 LVOT Diam: 2.20 3.0+(-)1.3 cm 2D Systolic Function EF 4C: 56.10 >55% EF 2C: 66.30 >55% EF BiP: 64.50 >55% Mitral Valve MV Pk E: 0.59 MV PK A: 0.83 MV Decel Time: 213.00 E/A: 0.70 E'Lateral: 6.53 E'Medial: 5.44 E/E' Med: 10.80 E/E' Lat: 9.00 PHT: 62.00 MVA PHT: 3.55 Decel Barry: 2.75 Aortic Valve AoV Pk Tejas: 0.97 AoV Mn Tejas: 0.63 AoV VTI: 0.24 AoV Pk Grad: 4.00 Aov Mn Grad: 2.00 KATEY Cont.VTI: 2.04 LVOT LVOT Pk Tejas: 0.69 LVOT Mn Tejas: 0.46 LVOT VTI: 0.13 LVOT Pk Grad: 2.00 LVOT Mn Grad: 1.00 LVOT Diam: 2.20 LVOT Area: 3.80 Diastolic Function MV Pk E: 0.59 MV Pk A: 0.83 E/A: 0.70 E'Medial: 5.44 E/E' Med: 10.80 E' Laterial: 6.53 E/E' Lat: 9.00 Right Ventricle TAPSE (mm): 26.90 TVS' Tejas: 9.79 Tricuspid Valve TR Pk Tejas: 2.72 TR Pk Grad: 30.00 RA Press: 3.00 RVSP: 33.00 Great Vessels Aorta Sinus of Valsalva: 3.77 2.0-3.[address] Ridge: 2.54 1.7-3.4 cm Ao Asc: 3.10 2.1-3.4 cm Pulmonary Veins Pulm Vein S/D 0.70 Updated in Other Vendor System with Status of Final Soham Caldwell MD electronically signed on 08/08/2025 4:34:51 PM with status of Final
== END ==
LOC: HO.CARD 09:26
PROVIDERS: PCP Internal Medicine; Visit Provider Internal Medicine Hospice and Palliative Medicine
DX: R01.1 Cardiac murmur, unspecified (principal)
CPT/HCPCS: 93306

== ENCOUNTER → 2025-08-08 09:32 | Outpatient (BNV) | payer MEDICARE, OTHER, SELFPAY | PROVIDERS: PCP Internal Medicine; Visit Provider Internal Medicine Cardiovascular Disease | DX: I34.0 Nonrheumatic mitral (valve) insufficiency (principal); R01.1 Cardiac murmur, unspecified | CPT/HCPCS: 93306 ==

== ENCOUNTER 2025-09-06 11:04 | Outpatient (AMB) | payer MEDICARE, OTHER, SELFPAY ==
--- OUTSIDE RECORDS SUMMARY | 2025-09-02 23:59 | XMS_ITS | Continuity of Care Document ---
Author Organization [facility] Address [address] [place] [address]- Care Team Providers Care Helicopter Repairer Name Role Phone Jennifer Moreno MD Primary Care Physician Encounter [facility] [id number] Date(s): 08/03/25 - 09/02/25 [facility] [address] [place] [address]- Attending Physician: Heather Reveles Admitting Physician: Heather Reveles Referring Physician: AdmtrHeather Encounter Type: Triage Allergies, Adverse Reactions, Alerts Substance Criticality Severity Reaction Reaction Severity Status codeine headaches and pain A ctive niacin Unknown weak, could not walk up stairs Active simvastatin weak and could not walk up stairs. Active iodinated radiocontrast dyes Unknown Active Fruity C Unknown Active regadenoson blood pressure dropped Active Codeine Phosphate Unknown Ac tive Medications aMILoride 5 mg oral tablet 1 tablet = 5 mg, By Mouth, Daily in AM, 90 tablet, 0 Refill(s), 0 Refills, 04/13/25 9:42:00 AM EDT, Partial fill upon patient request if the prescription is for a schedule II opioid drug. Start Date: 04/13/25 Status: Ordered Medication Dispense Status: Completed Total Allowed Fills: 1 Fills Dispensed: 0 amLODIPine 2.5 mg oral tablet 1 tablet = 2.5 mg, By Mouth, Daily in AM, 90 tablet, 0 Refill(s), 0 Refills, 04/13/25 9:42:00 AM EDT, Partial fill upon patient request if the prescription is for a schedule II opioid drug. Start Date: 04/13/25 Status: Ordered Medication Dispense Status: Completed Total Allowed Fills: 1 Fills Dispensed: 0 amLODIPine 2.5 mg oral tablet 1 Unknown, 0 Refill(s), Refills 0, 08/23/25 9:56:00 AM EDT, Partial fill upon patient request if the prescription is for a schedule II opioid drug. Start Date: 08/23/25 Status: Ordered Medication Dispense Status: Completed Total Allowed Fills: 1 Fills Dispensed: 0 ascorbic acid 500 mg oral capsule 1 Unknown, 0 Refill(s), 0 Refills, 08/23/25 9:56:00 AM EDT, Partial fill upon patient request if the prescription is for a schedule II opioid drug. Start Date: 08/23/25 Status: Ordered Medication Dispense Status: Completed Total Allowed Fills: 1 Fills Dispensed: 0 aspirin 81 mg oral delayed release tablet 1 Unknown, 0 Refill(s), Refills 0, 08/23/25 9:56:00 AM EDT, Partial fill upon patient request if the prescription is for a schedule II opioid drug. Start Date: 08/23/25 Status: Ordered Medication Dispense Status: Completed Total Allowed Fills: 1 Fills Dispensed: 0 latanoprost 0.005% ophthalmic solution 5 mL, 0 Refill(s), 0 Refills, 04/13/25 9:42:00 AM EDT, Partial fill upon patient request if the prescription is for a schedule II opioid drug. Start Date: 04/13/25 Status: Ordered Medication Dispense Status: Completed Total Allowed Fills: 1 Fills Dispensed: 0 latanoprost 0.005% ophthalmic solution 1 Unknown, 0 Refill(s), 0 Refills, 08/23/25 9:56:00 AM EDT, Partial fill upon patient request if the prescription is for a schedule II opioid drug. Start Date: 08/23/25 Status: Ordered Medication Dispense Status: Completed Total Allowed Fills: 1 Fills Dispensed: 0 metoprolol 50 mg oral tablet, extended release 1 Unknown, 0 Refill(s), Refills 0, 08/23/25 9:55:00 AM EDT, Partial fill upon patient request if the prescription is for a schedule II opioid drug. Start Date: 08/23/25 Status: Ordered Medication Dispense Status: Completed Total Allowed Fills: 1 Fills Dispensed: 0 Metoprolol Succinate ER 50 mg oral tablet, extended release 50 mg, 1, tablet, By Mouth, Daily in AM, 90 tablet, 0 Refill(s), Refills 0, 04/13/25 9:42:00 AM EDT,Partial fill upon patient request if the prescription is for a schedule II opioid drug. Start Date: 04/13/25 Status: Ordered Medication Dispense Status: Completed Total Allowed Fills: 1 Fills Dispensed: 0 Miscellaneous Rx 0 Refills, 90 tablet, 0 Refill(s), 08/23/25 9:56:00 AM EDT Start Date: 08/23/25 Status: Ordered Medication Dispense Status: Completed Total Allowed Fills: 1 Fills Dispensed: 0 mometasone 0.1% topical solution 60 mL, 0 Refill(s), 0 Refills, 08/23/25 9:55:00 AM EDT, Partial fill upon patient request if the prescription is for a schedule II opioid drug. Start Date: 08/23/25 Status: Ordered Medication Dispense Status: Completed Total Allowed Fills: 1 Fills Dispensed: 0 Multivitamin 0 Refill(s), 0 Refills, 08/23/25 9:55:00 AM EDT, Partial fill upon patient request if the prescription is for a schedule II opioid drug. Start Date: 08/23/25 Status: Ordered Medication Dispense Status: Completed Total Allowed Fills: 1 Fills Dispensed: 0 Timolol Maleate (Eqv-Istalol) 0 Refill(s), 0 Refills, 08/23/25 9:55:00 AM EDT, Partial fill upon patient request if the prescription is for a schedule II opioid drug. Start Date: 08/23/25 Status: Ordered Medication Dispense Status: Completed Total Allowed Fills: 1 Fills Dispensed: 0 timolol maleate 0.5% ophthalmic solution 15 mL, 0 Refill(s), 0 Refills, 04/13/25 9:42:00 AM EDT, Partial fill upon patient request if the prescription is for a schedule II opioid drug. Start Date: 04/13/25 Status: Ordered Medication Dispense Status: Completed Total Allowed Fills: 1 Fills Dispensed: 0 triamcinolone 0.1% topical ointment 454 Gm, 0 Refill(s), 0 Refills, 04/13/25 9:42:00 AM EDT, Partial fill upon patient request if the prescription is for a schedule II opioid drug. Start Date: 04/13/25 Status: Ordered Medication Dispense Status: Completed Total Allowed Fills: 1 Fills Dispensed: 0 triamcinolone acetonide 0 Refill(s), 0 Refills, 08/23/25 9:55:00 AM EDT, Partial fill upon patient request if the prescription is for a schedule II opioid drug. Start Date: 08/23/25 Status: Ordered Medication Dispense Status: Completed Total Allowed Fills: 1 Fills Dispensed: 0 Vitamin C 500 mg oral tablet, chewable 1 tablet = 500 mg, Chew, Daily, # 30 tablet, 0 Refills, Maintenance, 08/05/25 11:05:00 AM EDT, Chew Tablet, Partial fill upon patient request if the prescription is for a schedule II opioid drug. Start Date: 08/05/25 Status: Ordered Medication Dispense Status: Completed Quantity: 30.0 Unit: tablet Total Allowed Fills: 1 Fills Dispensed: 0 Social History Social History Type Response Smoking Status Never (less than 100 in lifetime) entered on: 08/03/25 Sex Sex Representation Female (finding) Patient Care team information Care Team Personnel Name: Jennifer Moreno MD Position: [facility] Physician - Primary Care Member Role: PCP Address: [address] Telecom: Care Team Related Persons Name: SHARMILA BELLA Insurance Providers Guarantor name: [employer] Health Plan Information #: 1 Payer: MEDICARE B Payer Identifier: NA Member Number: [id number] Group Number: [id number] Subscriber Identifier: NA Relationship to Subscriber: self Coverage Type: NA Coverage Verification Date: NA Telecom: NA Address: Health Plan Information #: 2 Payer: [id number] Payer Identifier: NA Member Number: [id number] Group Number: NA Subscriber Identifier: NA Relationship to Subscriber: self Coverage Type: NA Coverage Verification Date: Telecom: Address:
--- OUTSIDE RECORDS SUMMARY | 2025-09-05 23:59 | XMS_ITS | Continuity of Care Document ---
Author Organization [facility] Address [address] [place] [phone]- Care Team Providers Care Plant Clerk Name Role Phone Jennifer Moreno MD Primary Care Physician [place] [facility] [place]25 - 09/05/25 [facility] [address] [place] [address]- Encounter Type: Triage Allergies, Adverse Reactions, Alerts Substance Criticality Severity Reaction Reaction Severity Status codeine headaches and pain A ctive niacin Unknown weak, could not walk up stairs Active simvastatin weak and could not walk up stairs. Active iodinated radiocontrast dyes Unknown Active Fruity C Unknown Active Codeine Phosphate Unknown Ac tive regadenoson blood pressure dropped Active Medications aMILoride 5 mg oral tablet 1 [...] Team Personnel Name: Jennifer Moreno MD Position: [facility] Physician - Primary Care Member Role: PCP Address: [address] Telecom: Care Team Related Persons Name: SHARMILA BELLA Insurance Providers Guarantor name: VANCE Health Plan Information #: 1 Payer: MEDICARE B Payer Identifier: VANCE Member Number: [id number] Group Number: VANCE Subscriber Identifier: VANCE Relationship to Subscriber: self Coverage Type: NA Coverage Verification Date: Telecom: Address: Health Plan Information #: 2 Payer: [employer] Payer Identifier: VANCE Member Number: [id number] Group Number: [id number] Subscriber Identifier: NA Relationship to Subscriber: self Coverage Type: NA Coverage Verification Date: Telecom: Address:
[2025-09-06 11:23] VITALS: BP 130/68; PULSE 68; RESP 16; TEMP 36.6; O2SAT 98; BMI 19.0
--- NOTE | 2025-09-06 11:23 | MHC.PC.OV ---
Vital Signs 09/06/25 11:23 Height 5 ft 2 in Weight 104 lb BMI 19.0 BP 130/68 Blood Pressure Location Lt brachial Position Sitting Respiration 16 Pulse 68 Pulse Source Pulse Oximeter Temp 97.8 F Temp Source Oral Pulse Oximetry (%) 98 Oxygen Delivery Method Room Air Intake Visit Reasons: Follow up Intake Note: Pt is here today for a follow up visit. Allergies brimonidine Adverse Reaction (Verified 09/06/25 11:23) Anaphylaxis codeine Adverse Reaction (Verified 09/06/25 11:23) Nausea and Vomiting Iodinated Contrast Media Adverse Reaction (Verified 09/06/25 11:23) Anaphylaxis NSAIDS (Non-Steroidal Anti-Inflamma Adverse Reaction (Verified 09/06/25 11:23) chronic kidney disease simvastatin Adverse Reaction (Verified 09/06/25 11:23) leg weakness fruit Adverse Reaction (Uncoded 09/06/25 11:23) Nausea and Vomiting niacin Adverse Reaction (Uncoded 09/06/25 11:23) leg cramps Medication List - Last Reconciled 09/06/25 by Jennifre Moreno MD amiloride 5 mg PO DAILY amlodipine 2.5 mg PO DAILY ascorbic acid (vitamin C) 500 mg PO DAILY aspirin 81 mg PO DAILY latanoprost 0.005% 1 drp ophthalmic (eye) DAILY metoprolol succinate ER 50 mg PO DAILY multivit with min-folic acid 200 mcg (Adult Multivitamin Gummies) tabs PO timolol maleate 0.5% 1 drp ophthalmic (eye) BID triamcinolone acetonide 0.1% 1 appl topical DAILY Tobacco use date assessed: 09/06/25 Fall risk assessment: No Falls in past year Last assessed Fall Risk: 09/06/25 Dental Screening Dental Screen Date: 03/20/25 HPI Follow up HPI Details Pt presents for f/u of hypertension controlled on current medications. She reports worsening OMER when walking even short distance for a few months. Patient denies chest pain or palpitation with exertion. She denies PND or orthopnea. Patient had an echo on August 08 which showed worsening MR from mild to moderate comparing to Echo 2021, EF 60%, and basal inferiolateral hypokinesis and basal inferoseptal segments akinetic. Pt has been refusing to have nuclear stress test to assess for ischemia. She underwent Jatinder surgery for basal cell carcinoma on left side of the face on August 15. [facility] Medical History (Updated 09/06/25 @ 21:26 by Jennifer Moreno MD) Mitral valve regurgitation OMER (dyspnea on exertion) HTN (hypertension) CKD (chronic kidney disease), stage III Hyperlipidemia Rectal bleeding Viral upper respiratory tract infection with cough Surgical History (Updated 09/06/25 @ 21:24 by Jennifer Moreno MD) Status post lung surgery Family History Father No problems noted. Mother No problems noted. Social History Housing: Apartment Patient Tobacco Use Status: Never used Tobacco e-Cigarette/Vaping Use: Never Used service: No Current occupational status: retired Cognitive needs: No Hearing needs: Yes Vision needs: Yes Questionnaire PHQ-9 Over the last 2 weeks, how often have you been bothered by any of the following problems? 1. Little interest or pleasure in doing things: not at all 2. Feeling down, depressed, or hopeless: not at all 3. Trouble falling or staying asleep, or sleeping too much: not at all 4. Feeling tired or having little energy: not at all 5. Poor appetite or overeating: not at all 6. Feeling bad about yourself - or that you are a failure or have let yourself or your family down: not at all 7. Trouble concentrating on things, such as reading the newspaper or watching television: not at all 8. Moving or speaking so slowly that other people could have noticed. Or the opposite - being so fidgety or restless that you have been moving around a lot more than usual: not at all 9. Thoughts that you would be better off or of hurting yourself in some way: not at all Total score: 0 Depression Screening Interpretation: Negative Depression Screening Done: Yes Source: Developed by Drs. Lane Meyers, Mere Kovacs, Zak Huitron and colleagues, with an educational arielle from [employer]. Thrive Questionnaire Date Thrive assessed: 09/15/24 I am a: Patient What is your living situation today?: I have a steady place to live Within the past 12 months, did the food you bought not last and you didn't have the money to get more?: Never true Within the past 12 months, did you worry whether your food would run out before you got money to buy more?: Never true Do you have trouble paying for medicines?: No Do you have trouble getting transportation to medical appointments?: No Do you have trouble paying your heating and electricity bill?: No Do you have trouble taking care of your child, family member or friend?: No Do you have trouble with day-to-day activities such as bathing, preparing meals, shopping, managing finances, etc.?: No Are you currently unemployed and looking for a job?: No Are you interested in more education?: No Please select the resources that you would like help with: None Currently or been in a relationship where the following occur: No concerns reported THRIVE Score: 0 AUDIT C Alcohol Use Questionnaire (AUDIT-C) 1. How often do you have a drink containing alcohol?: Never 3. How often do you have six or more drinks on one occasion?: Never Total Score: 0 MATEO-7 AMB Questionnaire MATEO-7 Date MATEO - 7 assessed: 03/20/25 Feeling nervous, anxious, or on edge: 0 = Not at all Not being able to stop or control worryin = Not at all Worrying too much about different things: 0 = Not at all Trouble relaxin = Not at all Being so restless that it is hard to sit still: 0 = Not at all Becoming easily annoyed or irritable: 0 = Not at all Feeling afraid as if something awful might happen: 0 = Not at all Total MATEO-7 score (0-4 normal; 5-9 mild; 10-14 moderate; 15-21 severe): 0 Source: Developed by Drs. Lane Meyers, Mere Kovacs, Zak Huitron and colleagues, with an educational arielle from [employer]. Review of Systems Const All systems reviewed & are unremarkable except as noted in HPI and below Eyes Reports no additional complaints ENT Reports no additional complaints Card Reports no additional complaints Resp Reports no additional complaints GI Reports no additional complaints Reports no additional complaints Musc Reports no additional complaints Physical exam (Primary Care) Vital Signs: Last Vital Signs Temp 97.8 F 09/06/25 11:23 Pulse 68 09/06/25 11:23 Resp 16 09/06/25 11:23 BP 130/68 09/06/25 11:23 Pulse Ox 98 09/06/25 11:23 Oxygen Delivery Method Room Air 09/06/25 11:23 BMI result Body Mass Index 19.0 Tobacco/Smoking Status: Tobacco use Status Tobacco use date assessed 09/06/25 09/06/25 11:39 Patient Tobacco Use Status Never used Tobacco 09/06/25 11:39 e-Cigarette/Vaping Use Never Used 09/06/25 11:39 PHQ-9: PHQ-9 Score PHQ-9: Total score 0 09/06/25 11:52 Depression Screening Interpretation: Negative Thrive Assessment: Date of Thrive Assessment Date Thrive assessed 09/15/24 09/06/25 11:39 Currently or been in a relationship where the following occur: No concerns reported Const General: no acute distress HENMT Head: Yes normal to inspection Face and sinus: Yes normal facial exam Eyes General: appearance normal, both eyes and all related structures Neck Neck: Yes supple Resp Effort & Inspection: normal respiratory effort Auscultation: diminished lung sounds Cardio Rhythm: regular rhythm Heart sounds: S1 normal heart sound present, S2 normal heart sound present and Murmur heart sound present systolic GI Inspection: Yes normal to inspection Palpation (GI): Soft to palpation Percussion: Yes normal to percussion Auscultation: normal bowel sounds Extrem General: Yes no clubbing, cyanosis or edema Coding Level of Care Code Est Pt Level 4 (82651) Diagnoses Mitral valve regurgitation I34.0 CKD (chronic kidney disease), stage III N18.30 HTN (hypertension) I10 Assessment & Plan Assessment & Plan (1) Mitral valve regurgitation: Comment: Echo 08/2025 EF 60% . MR moderate, BASAL INFEROLATERAL SEGMENT HYPOKINESIS AND BASAL INFERIOR AND BASAL INFEROSEPTAL SEGMENTS AKINESIS Code(s): I34.0 - Nonrheumatic mitral (valve) insufficiency Category: Medical Plan: For worsening mitral valve regurgitation and segmental wall motion abnormalities present on patient will be referred to Cardiology (2) CKD (chronic kidney disease), stage III: Comment: Chronic, since 2019, Renal US small kidneys consistent with chronic kidney disease and bilateral renal cysts Code(s): N18.30 - Chronic kidney disease, stage 3 unspecified Category: Medical Plan: Patient will return for fasting blood work. She was advised to avoid nephrotoxins (3) HTN (hypertension): Code(s): I10 - Essential (primary) hypertension Category: Medical Plan: Continue current medications Orders: Orders XR chest 2V Today R06.09 - Other forms of dyspnea Comprehensive Met. Panel Today I10 - Essential (primary) hypertension, I34.0 - Nonrheumatic mitral (valve) insufficiency, N18.30 - Chronic kidney disease, stage 3 unspecified, R06.09 - Other forms of dyspnea NT Pro B Type Natriuretic Pept Today I10 - Essential (primary) hypertension, I34.0 - Nonrheumatic mitral (valve) insufficiency, N18.30 - Chronic kidney disease, stage 3 unspecified, R06.09 - Other forms of dyspnea Complete Blood Count Auto Diff Today I10 - Essential (primary) hypertension, I34.0 - Nonrheumatic mitral (valve) insufficiency, N18.30 - Chronic kidney disease, stage 3 unspecified, R06.09 - Other forms of dyspnea IRON PROFILE Today I10 - Essential (primary) hypertension, I34.0 - Nonrheumatic mitral (valve) insufficiency, N18.30 - Chronic kidney disease, stage 3 unspecified, R06.09 - Other forms of dyspnea TSH reflex Free T4 Today I10 - Essential (primary) hypertension, I34.0 - Nonrheumatic mitral (valve) insufficiency, N18.30 - Chronic kidney disease, stage 3 unspecified, R06.09 - Other forms of dyspnea Referrals Cardiology Referral I34.0 - Nonrheumatic mitral (valve) insufficiency
--- OUTSIDE RECORDS SUMMARY | 2025-09-06 13:37 | XMS_ITS | Patient Health Record ---
Author Organization [facility] Address [address] [place] [address] Care Team Providers Care International Sourcing Manager Name Role Phone Jennifer Moreno MD Primary Care Provider Genaro Gutierrez Jr Unavailable Allergies Allergen (clinical drug ingredient) Drug/Non Drug Allergy documented on EMR Reaction Allergy Type Onset Date Status Non-steroidal anti-inflammatory agent (FN) NSAIDs Unknown Drug Allergy Active simvastatin Simvastatin Unknown Drug Allergy Act henok niacin Niacin Unknown Drug Allergy Active Iodinated contrast media (substance) Iodinated Contrast Media Unknown Drug Allergy Active codeine Codeine Unknown Drug Allergy Active Fruit C Unknown Drug Allergy Active Reason For Referral [...] 03/29/2025 Encounters Encounter Location Date Provider Diagnosis [facility] [address] [place] [address] 03/29/2025 Genaro Hernandez Jr Rectal bleeding K62.5 [...] OF [place] [address] [place] [address] [id number] MAURICE BELLA Self - patient is the insured [employer] [address] [place] [address] [id number] BRO BELLAERINE Self - patient is the insured 6 Medical (General) History Medical History History ICD Code Hypertension Chronic kidney disease stage III Pneumonia Dyspnea on exertion Hyperlipidemia Rectal bleeding Surgical History Surgery Date(Month/Year) left upper lobe lung, Benign disease 201 8 removal of thyroid cyst cateracts bilateral tonsillectomy
--- OUTSIDE RECORDS SUMMARY | 2025-09-06 13:37 | XMS_ITS | Patient Health Record ---
Author Organization [facility] Address [address] [place] [address] [address] [place], [place] [id number] Care Team Providers Care Marine Engineer Name Role Phone Lewis Gomez MD Primary Care Provider Dr Lane Holland Unavailable [phone] Allergies Allergen (clinical drug ingredient) Drug/Non Drug Allergy documented on EMR Reaction Allergy Type Onset Date Status Codeine Phosphate Unknown Drug Allergy Active niacin Niacin Unknown Drug Allergy Active simvastatin Simvastatin Unknown Drug Allergy Act henok Reason For Referral No Information Medications Medication SIG (Take, Route, Frequency, Duration) Notes Start Date End Date Status Omeprazole 20 MG (Prior Auth#:[id number]) Oral; Duration: 30 Active Betamethasone Dipropionate 0 .05 % (Prior Auth#:[id number]) External; Duration: 8 Active Mupirocin 2 % (Prior Auth#:[id number]) External; Duration: 7 Active Metoprolol Succinate ER 25 MG (Prior Auth#:[id number]) Oral; Duration: 90 Active hydroCHLOROthiazide 12.5 MG (Prior Auth#:[id number]) Oral; Duration: 90 Active aMILoride HCl 5 MG (Prior Auth#:[id number]) Oral; Duration: 90 Active Latanoprost 0.005 % (Prior Auth#:[id number]) Ophthalmic; Duration: 37 Active Timolol Maleate 0.5 % (Prior Auth#:[id number]) Ophthalmic; Duration: 75 Active Immunizations Vaccine Route Administration Date [...] W/U Status Risk Notes Problem Generalized atherosclerosis (67395699) Generalized atherosclerosis (I70.91) Active confirmed Plan Of Treatment No Information Insurance Providers Payer Name Payer Address Payer Phone Subscriber Number Group Number Insured Name Patient Relationship to Insured Coverage Start Date Coverage End Date Medicare [address] [facility] [place] [address] [id number] Ambreen Storm Self - patient is the insured 1 [employer] Claims Processing [address] [place] [address] [id number] Ambreen Storm Self - patient is the insured 0 Medical (General) History Medical History History ICD Code Hypertension Kidney Disease Surgical History Surgery Date(Month/Year)
== END 2025-09-06 12:14 | disposition home or self-care (01) ==
LOC: HO.HMCC 11:05
PROVIDERS: PCP Internal Medicine; Visit Provider Internal Medicine
DX: I34.0 Nonrheumatic mitral (valve) insufficiency (principal); N18.30 Chronic kidney disease, stage 3 unspecified; I10 Essential (primary) hypertension

== ENCOUNTER → 2025-09-06 11:04 | Outpatient (BNVA) | payer MEDICARE, OTHER, SELFPAY | PROVIDERS: PCP Internal Medicine; Visit Provider Internal Medicine | DX: I34.0 Nonrheumatic mitral (valve) insufficiency (principal); I12.9 Hypertensive chronic kidney disease with stage 1 through stage 4 chronic kidney disease, or unspecified chronic kidney disease; N18.30 Chronic kidney disease, stage 3 unspecified | CPT/HCPCS: 99212 ==

== ENCOUNTER 2025-09-07 07:11 | Outpatient (REF) | payer MEDICARE, OTHER, SELFPAY ==
--- NOTE | ~2025-09-07 | XR_ITS ---
EXAMINATION: XR CHEST CLINICAL INFORMATION: R06.09 - Other forms of dyspnea COMPARISON: September 18, 2024 TECHNIQUE: PA and lateral views FINDINGS: Hyperinflated lungs. Pulmonary reticular pattern. No gross consolidation, pleural effusion or pneumothorax. Probable bronchiectasis, right lung. Cardiomediastinal silhouette size is prominent, unchanged. Tortuosity, thoracic aorta. Calcified plaque thoracic aorta. Osteopenia versus osteoporosis. 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 Kyphotic deformity mid thoracic spine. S-shaped curvature of the thoracolumbar spine with a rotatory component and lumbar segment. XR/XR chest 2V IMPRESSION: COPD emphysematous type changes without gross acute airspace disease. Cardiomegaly, mild. 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 Scoliosis, thoracolumbar spine. Osteopenia versus osteoporosis. Electronically signed by: Pop Roman MD 09/07/2025 08:55 AM MIKE
--- OUTSIDE RECORDS SUMMARY | 2025-09-07 07:17 | XMS_ITS | Patient Health Record ---
Author Organization [facility] Address [address] [place] [address] [address] [place], [place] [id number] Care Team Providers Care Automotive Dismantler Name Role Phone Lewis Gomez MD Primary Care Provider Dr Lane Holland Unavailable [phone] Allergies Allergen (clinical drug ingredient) Drug/Non Drug Allergy documented on EMR Reaction Allergy Type Onset Date Status Codeine Phosphate Unknown Drug Allergy Active niacin Niacin Unknown Drug Allergy Active simvastatin Simvastatin Unknown Drug Allergy Act henok Reason For Referral No Information Medications Medication SIG (Take, Route, Frequency, Duration) Notes Start Date End Date Status Omeprazole 20 MG (Prior Auth#:[id number]) Oral; Duration: 30 Active Betamethasone Dipropionate 0 .05 % (Prior Auth#:[id number]) External; Duration: 8 Active Mupirocin 2 % (Prior Auth#:[id number]) External; Duration: 7 Active Metoprolol Succinate ER 25 MG (Prior Auth#:[id number]) Oral; Duration: 90 Active hydroCHLOROthiazide 12.5 MG (Prior Auth#:[id number]) Oral; Duration: 90 Active aMILoride HCl 5 MG (Prior Auth#:[id number]) Oral; Duration: 90 Active Latanoprost 0.005 % (Prior Auth#:[id number]) Ophthalmic; Duration: 37 Active Timolol Maleate 0.5 % (Prior Auth#:[id number]) Ophthalmic; Duration: 75 Active Immunizations Vaccine Route [...] W/U Status Risk Notes Problem Generalized atherosclerosis (67226143) Generalized atherosclerosis (I70.91) Active confirmed Plan Of Treatment No Information Insurance Providers Payer Name Payer Address Payer Phone Subscriber Number Group Number Insured Name Patient Relationship to Insured Coverage Start Date Coverage End Date Medicare [address] [facility] [place] [address] [id number] Ambreen Storm Self - patient is the insured 1 [employer] Claims Processing [address] [place] [address] [id number] Ambreen Storm Self - patient is the insured 0 Medical (General) History Medical History History ICD Code Hypertension Kidney Disease Surgical History Surgery Date(Month/Year)
--- OUTSIDE RECORDS SUMMARY | 2025-09-07 07:17 | XMS_ITS | Patient Health Record ---
Author Organization [facility] Address [address] [place] [address] Care Team Providers Care Fiber Design Engineer Name Role Phone Jennifer Moreno MD Primary [...] 03/29/2025 Encounters Encounter Location Date Provider Diagnosis [facility] [address] [place] [address] 03/29/2025 Genaro Hernandez Jr Rectal bleeding K62.5 [...] OF [place] [address] [place] [address] [id number] MAURICE BELLA Self - patient is the insured 1 [employer] [address] [place] [address] [id number] BRO BELLAERINE Self - patient is the insured 6 Medical (General) History Medical History History ICD Code Hypertension Chronic kidney disease stage III Pneumonia Dyspnea on exertion Hyperlipidemia Rectal bleeding Surgical History Surgery Date(Month/Year) left upper lobe lung, Benign disease 201 8 removal of thyroid cyst cateracts bilateral tonsillectomy
[2025-09-07 10:21] LABS: MANUAL DIFF FLAG NO
[2025-09-07 10:33] LABS: Hematocrit 41.8 % (37.0-47.0); Hemoglobin 12.9 g/dl (12.0-16.0); Imm Gran Abs Auto 0.02 X10*3/uL (0.00-0.03); Imm Gran Pct Auto 0.3 % (0.0-0.4); Lymphocytes Absolute Auto 1.1 X10*3/uL (1.2-4.9); Mean Corpuscular HGB Conc 30.9 g/dl (31.0-35.0); Mean Corpuscular Hemoglobin 30.2 pg (27.0-33.0); Mean Corpuscular Volume 97.9 fL (80.0-98.0); NRBC Abs Auto 0.000 X10*3/uL (0.0-0.012); NRBC Pct Auto 0.0 /100WBC (0.0-0.2); Platelet Count 257 X10*3/uL (160-400); Red Blood Count 4.27 X10*6/uL (4.20-5.50); White Blood Count 5.8 X10*3/uL (4.8-10.8)
[2025-09-07 10:43] LABS: NT Pro B Type Natriuretic Pept 754.4 pg/mL (<300)
[2025-09-07 10:53] LABS: Alanine Aminotransferase 12 U/L (0-31); Albumin Level 4.1 g/dL (3.5-5.0); Alkaline Phosphatase 81 U/L (39-117); Anion Gap 9 (12-20); Aspartate Amino Transferase 23 U/L (5-31); Blood Urea Nitrogen 27 mg/dL (9-16); Calcium 9.2 mg/dL (8.4-10.2); Carbon Dioxide 28 mmol/L (22-29); Chloride 107 mmol/L (96-108); Estimated Glomerular Filt Rate 45; Iron 75 mcg/dL (30-160); Percent Iron Saturation 27 % (15-50); Potassium 4.2 mmol/L (3.3-5.1); Sodium 140 mmol/L (135-145); Total Iron Binding Capacity 274 mcg/dL (228-428); Total Protein 7.4 g/dL (6.5-8.0); Unsaturated Iron Binding 199 ug/dL
== END 2025-09-07 07:12 | disposition home or self-care (01) ==
LOC: HO.HMGCX 07:11
PROVIDERS: PCP Internal Medicine; Visit Provider Internal Medicine
DX: R06.09 Other forms of dyspnea (principal); I12.9 Hypertensive chronic kidney disease with stage 1 through stage 4 chronic kidney disease, or unspecified chronic kidney disease; N18.30 Chronic kidney disease, stage 3 unspecified; I34.0 Nonrheumatic mitral (valve) insufficiency
CPT/HCPCS: 36415; 71046; 80053; 83540; 83880; 84443; 85025

== ENCOUNTER → 2025-09-07 08:35 | Outpatient (BNV) | payer MEDICARE, OTHER, SELFPAY | PROVIDERS: PCP Internal Medicine; Visit Provider Radiology Diagnostic Radiology | DX: J43.9 Emphysema, unspecified (principal); I51.7 Cardiomegaly; M41.85 Other forms of scoliosis, thoracolumbar region | CPT/HCPCS: 71046 ==